=== PATIENT | male | born 1950 | race Caucasian/White ===

== ENCOUNTER 2019-08-02 06:13 | Inpatient (IN) ==
[2019-07-24 14:33] LABS: Basophils # (auto) 0.05 K/uL (0-0.2); Basophils % (auto) 0.5 %; Eosinophils # (auto) 0.12 K/uL (0-0.5); Eosinophils % (auto) 1.3 %; Hematocrit (blood only) 38.5 % (42-52); Hemoglobin 13.5 g/dL (14.0-18.0); Immature Granulocytes # (auto) 0.02 K/uL (0.00-0.02); Immature Granulocytes % (auto) 0.2 %; Lymphocytes # (auto) 2.25 K/uL (1.2-3.4); Lymphocytes % (auto) 24.5 %; Mean Corpuscular Hemoglobin 29.8 pg (25-34); Mean Corpuscular Hgb Conc 35.1 g/dL (32-36); Mean Platelet Volume 11.7 fL (7.4-10.4); Monocytes # (auto) 0.81 K/uL (0.11-0.59); Monocytes % (auto) 8.8 %; Neutrophils # (auto) 5.94 K/uL (1.4-6.5); Neutrophils % (auto) 64.7 %; Platelet Count 229 K/uL (130-400); RDW Coefficient of Variation 13.5 % (11.5-14.5); RDW Standard Deviation 41.7 fL (36.4-46.3); Red Blood Count 4.53 M/uL (4.7-6.1); White Blood Count 9.19 K/uL (4.8-10.8)
[2019-07-24 14:52] LABS: BUN Creatinine Ratio 18.5 (10-20); Blood Urea Nitrogen 22 mg/dl (7-18); Calcium 8.7 mg/dl (8.5-10.1); Carbon Dioxide 27 mmol/L (21-32); Chloride 106 mmol/L (98-107); Est GFR (African American) 71.5; Est GFR (Non-African American) 61.7; Glucose 94 mg/dl (70-99); Sodium 141 mmol/L (136-145)
--- NOTE | 2019-07-26 13:27 | Anesthesiology Consultation ---
Date of Service July 26, 2019 Assessment & Plan (1) Encounter for pre-operative examination: Chart Review Chart Review: Acceptable Risk for Surgery and Patient NOT seen in Pre Admission Testing Consults Requested none Teaching & Discussion med teaching done via phone by PAT RN History Surgery Operation Date: 08/02/19 10:30 Proposed Procedures p Navigational Bronchoscopy with ICG Markings, - Singh Rich MD, FACS s Left Robotic Video Assisted Thoracoscopy with Left Upper Lobe Wedge Resection, Possible Left Upper Lobectomy with Mediastinal Lymphadenectomy - Singh Rich MD, FACS Height/Weight Height: 6 ft Weight: 93.894 kg Allergies Allergy/AdvReac Type Severity Reaction Status Date / Time No Known Allergies Allergy Verified 07/24/19 11:21 Medications Home Medications Medication Instructions Recorded Confirmed Last Taken ascorbic acid (vitamin C) ER 1,000 2,000 mg PO DAILY tab 07/12/19 07/24/19 Unknown mg tablet,extended release calcium carbonate 500 mg (1,250 1 tab PO DAILY 07/12/19 07/24/19 Unknown mg)-vitamin D3 125 unit tablet cholecalciferol (vitamin D3) 10,000 units PO DAILY 07/12/19 07/24/19 Unknown 10,000 unit capsule turmeric root extract 500 mg 500 mg PO Q2D 07/12/19 07/24/19 Unknown capsule vitamin B complex capsule 1 cap PO Q2D 07/12/19 07/24/19 Unknown Past Medical History Medical History Lung nodule irregular lung lesion Pure hypercholesterolemia Past Family History Family History Father Diabetes Mother Cancer Heart disease Past Surgical History Surgical History H/O arthroscopic knee surgery unsure which side H/O hand surgery at age 1. History of colonoscopy Social History Smoking Status: Never smoker Do You Dip or Chew Tobacco: No Hx Alcohol Use: Yes alcohol intake frequency: holidays/special occasions only Hx Substance Use: No substance use type: does not use Testing Laboratory Results 07/24/19 14:04 07/24/19 14:04 Electrocardiogram Date: 04/12/19 Findings: + NSR @ (63) Other Testing Chest CT 8/26/19: 1. No significant change in the mixed solid and groundglass 3.4 cm spiculated lesion within the left upper lobe. This is highly suspicious for a primary bronchogenic malignancy. 2. Stable 4 mm groundglass indeterminate pulmonary nodule within the superior segment of the right lower lobe. Continued follow-up recommended to exclude an a dditional low-grade neoplasm.
[~2019-08-02 06:13] MED LIST: LR 15ML/HR IV SCH
[2019-08-02] MEDS ORDERED: SODIUM CHLORIDE 0.9% PF 50 ML VIAL ONE (06:58)
[2019-08-02] MEDS ORDERED: BUPIVACAINE LIPOSOME 1.3% 266 MG/20 ML VIAL ONE (06:58)
[2019-08-02] MEDS ORDERED: BUPIVACAINE 0.5 % 5 MG/1 ML MPF 30ML VIAL ONE (06:58)
--- NOTE | 2019-08-02 07:26 | History & Physical Bridge Note ---
Date of Service August 02, 2019 History & Physical Bridge Note I have examined the patient, reviewed the History & Physical and in the interval since the performance of the History & Physical I have noted the following changes of clinical significance: no changes noted
[2019-08-02] MEDS ORDERED: PROPOFOL IV EMULSION 10 MG/ML 20 ML VIAL IV ONE (07:29)
[2019-08-02] MEDS ORDERED: ONDANSETRON INJ 2 MG/ML 2 ML VIAL ONE (07:29)
[2019-08-02] MEDS ORDERED: NEOSTIGMINE METHYLSULFATE 5 MG/5 ML SYR ONE (07:29)
[2019-08-02] MEDS ORDERED: LIDOCAINE HCL 2% 2 ML VIAL/AMP(20MG/ML) INFIL ONE (07:29)
[2019-08-02] MEDS ORDERED: GLYCOPYRROLATE 0.2 MG/ML VIAL ONE (07:29)
[2019-08-02] MEDS ORDERED: DEXAMETHASONE SOD INJ 4 MG/ML VIAL ONE (07:29)
[2019-08-02] MEDS ORDERED: MIDAZOLAM HCL 1 MG/ML 2ML VIAL ONE (07:30)
[2019-08-02] MEDS ORDERED: fentaNYL citrate 100 MCG/2 ML VIAL ONE ×4 (07:30→12:39)
[2019-08-02] MEDS ORDERED: HYDROmorphone INJ 2 MG/ML SYR/VIAL IV PRN (08:02)
[2019-08-02] MEDS ORDERED: ATROPINE SULFATE 0.1 MG/ML 10ML SYR IV PRN ×2 (08:02→14:55)
[2019-08-02] MEDS ORDERED: ePHEDrine sulfate 50 MG/ML AMP IV PRN ×2 (08:02→14:55)
[2019-08-02] MEDS: CEFAZOLIN 2000MG 2,000 MG/15 ML SYR IV ONE ×2 (08:13→08:27)
[2019-08-02] MEDS ORDERED: INDOCYANINE GREEN 25 MG/10 ML INJ ONE (08:39)
--- NOTE | 2019-08-02 09:13 | Fluoroscopy Report ---
FL chest 1V frontal CLINICAL HISTORY: JUSTIN BRONCH WITH ICG MARKINGS COMPARISON STUDY: CT scan dated 07/24/2019 FLUOROSCOPY TIME: 28 seconds. NUMBER OF FLUOROSCOPIC IMAGES: 2 FINDINGS: 2 fluoroscopic spot images demonstrate a bronchoscope and bronchoscopy catheter within the left upper lobe. IMPRESSION: Intraprocedural fluoroscopic spot images demonstrating a bronchoscope and catheter withi n the left upper lobe Electronically signed by: Wai Lemons M.D. 08/02/2019 9:12 AM
[2019-08-02] MEDS ORDERED: ePHEDrine sulfate 50 MG/ML SYR ONE (10:05)
[2019-08-02] MEDS ORDERED: PHENYLEPHRINE 100MCG/ML 5ML SYR ONE (10:05)
[2019-08-02] MEDS ORDERED: SURGICEL ABSORB HEMOSTAT 2IN X 14IN TOP ONE (10:34)
[2019-08-02] MEDS ORDERED: PROGEL PLEURAL AIR LEAK SEALAN 4ML TOP ONE (12:25)
[2019-08-02] MEDS ORDERED: ROCURONIUM BROMIDE 10 MG/ML 5 ML VIAL ONE (12:29)
[2019-08-02] MEDS ORDERED: METOCLOPRAMIDE HCL INJ 5 MG/ML 2 ML VIAL IV ONE (12:55)
--- NOTE | 2019-08-02 13:08 | Post Operative Brief Note ---
PG Immediate Post Op with CF Date of Surgery August 02, 2019 Pre & Post Diagnosis Operation Date: 08/02/19 08:15 Pre-Op Diagnosis: Left Lung Mass Post-Op Diagnosis: Adenocarcinoma JOHANNA Procedure Operation Date: 08/02/19 08:15 Actual Procedures p Navigational Bronchoscopy with ICG Markings; - Singh Rich MD, FACS s Left Robotic Video-Assisted Thoracoscopy with Left Upper Lobe Wedge Resection,Left Upper Lobectomy, with Mediastinal Lymphadenectomy(Left) - Singh Rich MD, FACS Surgeon Singh Rich MD, FACS Babbitter Krysten MCDANIELS Estimated Blood Loss 75 Findings Consistent with Post-Op Diagnosis Specimens Specimen Description: A. L10 lymph node x4 multiple nodes B. Level 7 lymph node C. L9 lymph node D. L8 lymph node E. L11 lymph node x6 multiple nodes F. Level 5 lymph node x2 multiple nodes G. Level 6 lymph node H. L12 lymph node x4 multiple nodes I. left upper lobe Frozen section#1 left upper lobe wedge for diagnosis Drains Chest Tube (24fr) and Hammond Catheter
--- NOTE | 2019-08-02 13:43 | XRay Report ---
XR chest 1V portable HISTORY: Postop. Left upper lobectomy. COMPARISON: Chest CT 07/24/2019. FINDINGS: There is a small left apical pneumothorax with a maximal pleural gap of 2.5 cm. Left-sided chest tube terminates in the left medial upper lung zone. Small left pleural effusion and left basila r densities. The heart is normal in size. The right lung is essentially clear. IMPRESSION: Small left apical pneumothorax. The left-sided chest tube terminates within the medial upper lung zon e. Electronically signed by: He Salomon M.D. 08/02/2019 1:42 PM
--- NOTE | 2019-08-02 15:00 | Anesthesiology Progress Note ---
Date of Service August 02, 2019 Anesthesia Post Procedure Vital Signs Vital Signs: Temp Pulse Pulse Resp BP Pulse Ox 08/02/19 14:51 35.9 C L 78 15 155/87 H 96 08/02/19 14:40 79 15 144/85 H 97 08/02/19 14:30 85 15 128/85 94 08/02/19 14:15 85 15 142/81 H 94 08/02/19 14:05 83 18 133/76 100 08/02/19 13:55 88 14 133/76 96 08/02/19 13:45 92 H 18 113/67 98 08/02/19 13:35 75 18 113/67 98 08/02/19 13:26 35.8 C L 74 18 104/62 98 08/02/19 07:03 36.6 C 65 18 147/94 H 99 Transfer of Care Handoff Completed per policy Notes Mental Status: alert / awake / arousable Patient Amnestic to Procedure: Yes Nausea / Vomiting: adequately controlled Pain: adequately controlled Airway Patency, RR, SpO2: stable & adequate BP & HR: stable & adequate Hydration State: stable & adequate Anesthetic Complications: no major complications apparent and Pt Satisfied with anesthetic care
[2019-08-02] MEDS ORDERED: ONDANSETRON INJ 2 MG/ML 2 ML VIAL IV PRN (15:54)
[2019-08-02] MEDS: ACETAMINOPHEN 1,000 MG/100 ML VIAL IV SCH (16:19)
[2019-08-02] MEDS: METOCLOPRAMIDE HCL INJ 5 MG/ML 2 ML VIAL IV SCH (16:19)
[2019-08-02] MEDS: D5W AND 1/2NSS 1,000 ML IV SCH (19:01)
[2019-08-02] MEDS: DOCUSATE SODIUM 100 MG CAP PO SCH (21:47)
--- NOTE | 2019-08-02 23:49 | Operative Report ---
DATE OF OPERATION: 08/02/2019 PREOPERATIVE DIAGNOSIS: Hypermetabolic mass, left upper lobe. 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 PROCEDURES: 1. Electromagnetic navigational bronchoscopy with marking of left upper lobe lesion using indocyanine green dye. 2. Robot-assisted left thoracoscopic wedge resection of left upper lobe mass marked by ICG dye. 3. Robot-assisted thoracoscopic left upper lobectomy. 4. Robot-assisted thoracoscopic left mediastinal lymphadenectomy. SURGEON: Singh Rich MD. AIRFIELD MANAGER: ENEDELIA Escalona (Mr. Madrid was present for the entire case and was at the patient's bedside while I was at the console). ANESTHESIA: General anesthesia with endotracheal intubation using a double lumen tube. SPECIFICS OF PROCEDURE AND FINDINGS: Freddie Huynh is a very nice 69-year-old male, who looks much younger than stated age with excellent lung function, who was found to have a mass in his left upper lobe. This had been debated about the best way to treat this; however, he presented to me for an opinion and quite frankly I was concerned about the appearance. It was hypermetabolic, but I did not like the appearance, even though it was a bit infiltrative. After a long discussion in the office with the patient's , we elected to proceed with a thoracoscopic wedge biopsy and having it marked by ICG dye. INDICATION FOR PROCEDURE AND FINDINGS: On 08/02/2019, the patient underwent an electromagnetic navigational bronchoscopy with marking of the lesion with indocyanine green dye. We could see this and we used the Firefly fluorescence using the da Kaley robot and wedged this out. The patient had no fissure whatsoever and in this case a bit more technically challenging, but he did very well with negligible blood loss, although he did have a small air leak at the conclusion of the case. Frozen section showed this to be an adenocarcinoma, although Dr. Reinaldo Graham from pathology felt that this was possibly carcinoma in situ. This was a large lesion well over 3 cm. I elected to proceed with a lobectomy. DESCRIPTION OF PROCEDURE: The patient was brought to the operating room, laid in supine position. General anesthesia was induced and endotracheal intubation was performed with single lumen tube. After appropriate timeout had been called and prophylactic antibiotics given, a fiberoptic bronchoscope was placed through the adapter and I closely inspected each of the airways down to the tertiary airways and saw no mucus and saw no endobronchial lesions. We then registered the airways in the superDimension system and then went right out to the lesion going to the left upper lobe lesion, which had been mapped. We confirmed this with the radial ultrasound. It was not a solid mass, but it was definitely different than normal lung. We then took 1 mL of indocyanine green dye with 1 mL of air and injected it into this area under fluoroscopic guidance. We then removed the scope. There was no bleeding. The patient was then readied for his robotic wedge resection and possible lobectomy. The patient was switched over to a double lumen tube. An arterial line was placed with a Hammond catheter and he was placed in the right lateral decubitus position. His left chest was prepped and draped in usual sterile fashion. At about the seventh interspace near the midline, an incision was made and a 5-mm scope placed while the patient had been placed in one-lung ventilation. There were no adhesions; however, there was not much of a fissure either. We then switched this port out to a camera port which was about 12 mm. Closer to the costal margin we placed an 8-mm port about 10 cm lateral to our camera port. Patient had an 8-mm port and a 5-mm port closer to the spine an interspace or two below this. Assistance port was placed just above the diaphragm anteriorly. We were then able to go ahead and had to go find the fissure and try to separate it, although we really could not get down to the vessels. I had to separate some of this so that I could have enough of the left upper lobe until I finally fired a stapler across this. It should be noted that with the Firefly technology, we could see where the dye had been located and included this in our wedge. While waiting for this wedge, we went down and took down the inferior pulmonary ligament, biopsied level 9 node, level 8 node, and then took out the entire level 7 packet. I then took out the level 5 node, level 6 node, several level 10 nodes, and several level 11 and even some level 12 nodes as we got further out. I then came around the top superiorly and opened the pleura all the way up and cleaned out the arterial branches. The apical anterior segment was cleaned off quite nicely. We then came around to the front and when frozen section came back as an adenocarcinoma, we elected to proceed with a resection. I was able to retract the lung posteriorly and took the pleura down all the way from the AP window down to the inferior pulmonary vein. We dissected out multiple lymph nodes which really opened up the vessels nicely. I fired an Endo-TRINIDAD stapler across the lingula and the superior pulmonary vein in one shot. This opened up things quite nicely and we were able to take the apical anterior branch by firing an Endo-TRINIDAD stapler. The A3 segment was also identified and we fired a stapler across this. This freed up things nicely and we came down and dissected out the artery until we saw the lingular artery. However, the bronchus had been cleaned off quite nicely and I went ahead and fired a stapler on the proximal left upper lobe bronchus. This opened up things nicely and we were able to see the lingular artery and we divided this with an Endo-TRINIDAD stapler. We just had the fissure left now, but we had dissected it out, so we were able to see and avoided the arteries and came down and completed the fissure posteriorly and then anteriorly. It should be noted this patient really had no fissures. We delivered this off the field in an Endobag. The patient had a small air leak, but it was right along the staple line and was a bit difficult to get to. I sprayed Progel over this. He had a small air leak, but I thought he would tolerate this well. At the beginning of the case, 266 mg of Exparel and 20 mL of solution was mixed with 30 mL of 0.5% bupivacaine and 250 mL of normal saline. After this had been mixed, it was fired into each of the 5 port sites. I also did an intercostal block from the 2nd to the 12th rib by injecting fully into the interspaces. At the conclusion of the case, we could see the air leak was acceptable. We placed a 24-Yoruba chest tube and directed it towards the apex through the anterior port. We sutured it in place with heavy silk suture. We then undocked and removed all the ports and closed the assistance port and the camera port with 0 Vicryl. A 4-0 Monocryl was used in running subcuticular fashion to approximate the wound edges. The patient was extubated in the room and did quite nicely. I attest to the content of the Intraoperative Record and any orders documented therein. Any exception s are noted below.
[2019-08-03] MEDS: METOCLOPRAMIDE HCL INJ 5 MG/ML 2 ML VIAL IV SCH ×2 (00:21→07:43)
[2019-08-03] MEDS: ACETAMINOPHEN 1,000 MG/100 ML VIAL IV SCH ×2 (00:32→07:43)
[2019-08-03] MEDS: D5W AND 1/2NSS 1,000 ML IV SCH (04:27)
[2019-08-03 06:04] LABS: Basophils # (auto) 0.01 K/uL (0-0.2); Basophils % (auto) 0.1 %; Hematocrit (blood only) 33.9 % (42-52); Hemoglobin 11.7 g/dL (14.0-18.0); Immature Granulocytes # (auto) 0.05 K/uL (0.00-0.02); Immature Granulocytes % (auto) 0.3 %; Lymphocytes # (auto) 1.04 K/uL (1.2-3.4); Lymphocytes % (auto) 6.7 %; Mean Corpuscular Hemoglobin 29.7 pg (25-34); Monocytes # (auto) 1.23 K/uL (0.11-0.59); Neutrophils # (auto) 13.09 K/uL (1.4-6.5); Neutrophils % (auto) 84.9 %; Platelet Count 161 K/uL (130-400); RDW Coefficient of Variation 14.2 % (11.5-14.5); RDW Standard Deviation 44.8 fL (36.4-46.3); Red Blood Count 3.94 M/uL (4.7-6.1); White Blood Count 15.42 K/uL (4.8-10.8)
[2019-08-03 06:12] LABS: Mean Corpuscular Hgb Conc 34.5 g/dL (32-36)
[2019-08-03 06:23] LABS: BUN Creatinine Ratio 17.2 (10-20); Calcium 8.4 mg/dl (8.5-10.1); Creatinine Clr Calc Pharmacy 63.4 ml/min; Est GFR (African American) 64.8; Est GFR (Non-African American) 55.9; Potassium 4.6 mmol/L (3.5-5.1)
--- NOTE | 2019-08-03 07:08 | XRay Report ---
XR chest 1V portable HISTORY: 69 years-old Male JOHANNA follow-up study in a patient with postoperative changes of the left l joe and left apical pneumothorax COMPARISON: Chest radiograph 08/02/2019 TECHNIQUE: Portable AP view of the chest FINDINGS: Left-sided chest tube is noted with distal tip terminating adjacent to the lateral left upper lung. S topped changes of the left midlung. Decreased size of the left pneumothorax, now with pleural separat ion of 1.6 cm, previously measuring approximately 2.5 cm. Bibasilar opacities suggest probable atelec tasis. There is improved aeration of the left lung base. No overt pulmonary edema or large pleural ef fusion. Degenerative changes of the shoulders and spine. IMPRESSION: 1. Postoperative changes of the left lung with left-sided chest tube in place. 2. Small left apical pneumothorax has decreased in size from comparison. 3. Improved aeration of the left lung base with persistent bibasilar opacities suggestive of atelecta sis. The above report was generated using voice recognition software. It may contain grammatical, syntax o r spelling errors. Electronically signed by: Shantanu Arguello M.D. 08/03/2019 7:07 AM
[2019-08-03] MEDS: DOCUSATE SODIUM 100 MG CAP PO SCH ×2 (07:43→20:29)
[2019-08-03] MEDS: ENOXAPARIN INJ 40 MG/0.4 ML SYR SQ SCH (07:43)
[2019-08-03] MEDS: OXYCODONE HCL IR 5 MG TAB (IMMEDIATE RELEASE) PO PRN ×3 (07:56→19:54)
[2019-08-03] MEDS: MoRPHine SULFATE 2 MG/ML CARP IV PRN ×2 (09:37→15:30)
--- NOTE | 2019-08-03 10:42 | Anesthesiology Progress Note ---
Date of Service August 03, 2019 Anesthesia Post Procedure Vital Signs Vital Signs: Temp Pulse Pulse Resp BP BP Pulse Ox 08/03/19 07:02 36.6 C 60 16 119/72 96 08/03/19 04:28 96 08/03/19 03:15 36.8 C 72 16 107/61 96 08/03/19 01:17 36.9 C 83 16 114/54 L 95 08/02/19 23:15 36.6 C 83 16 132/69 96 08/02/19 21:53 152/92 H 08/02/19 21:48 36.6 C 91 H 16 166/76 H 96 08/02/19 19:14 36.9 C 95 H 18 157/83 H 93 08/02/19 18:10 89 16 149/96 H 100 08/02/19 17:23 36.3 C L 89 16 146/82 H 100 08/02/19 16:15 82 16 147/84 H 98 08/02/19 15:42 36.3 C L 84 16 145/90 H 98 08/02/19 15:15 36.3 C L 81 18 138/84 92 08/02/19 14:51 35.9 C L 78 15 155/87 H 96 08/02/19 14:40 79 15 144/85 H 97 08/02/19 14:30 85 15 128/85 94 08/02/19 14:15 85 15 142/81 H 94 08/02/19 14:05 83 18 133/76 100 08/02/19 13:55 88 14 133/76 96 08/02/19 13:45 92 H 18 113/67 98 08/02/19 13:35 75 18 113/67 98 08/02/19 13:26 35.8 C L 74 18 104/62 98 Pain Intensity Left Flank: Pain Intensity: 6 Left Chest: Pain Intensity: 0 Notes Mental Status: alert / awake / arousable and participated in evaluation Patient Amnestic to Procedure: Yes Nausea / Vomiting: adequately controlled Pain: adequately controlled Airway Patency, RR, SpO2: stable & adequate BP & HR: stable & adequate Hydration State: stable & adequate Anesthetic Complications: no major complications apparent and Pt Satisfied with anesthetic care
[2019-08-03] MEDS: ACETAMINOPHEN 325 MG TAB PO SCH ×2 (13:24→19:01)
--- NOTE | 2019-08-03 18:38 | Progress Note ---
DATE: 08/03/2019 The patient was seen today 1 day status post a robot-assisted thoracoscopic left upper lobectomy for an adenocarcinoma. He is stable. His white count is 15,420 which is not surprising. Hemoglobin is down to 11.7, which is fairly good. BUN and creatinine are normal. I thought his chest x-ray looked quite good except for some low volumes. I am a bit surprised with the patient. His pain control has been very poor. This is despite the fact that we did a block. I believe some of this may be anxiety and I am going to give him some Ativan. He really needs to move and to walk. Otherwise, I am quite pleased with how well he has done from a surgical standpoint. He still has a small air leak, but it is definitely better than yesterday. ASSESSMENT AND PLAN: Postoperative day #1 status post robot-assisted thoracoscopic left upper lobectomy with mediastinal lymphadenectomy for an adenocarcinoma. Final pathology is still pending. I had a long discussion with the patient and his about how important it is going to be for him to get up and move and walk to prevent a pneumonia or pulmonary emboli and also that we have to give this air leak time to heal.
[2019-08-04] MEDS: MoRPHine SULFATE 2 MG/ML CARP IV PRN ×2 (00:03→18:14)
[2019-08-04] MEDS ORDERED: LORazepam 0.25 MG/0.5 ML VIAL IV STA (02:08)
[2019-08-04] MEDS: ACETAMINOPHEN 325 MG TAB PO SCH ×4 (02:24→20:22)
[2019-08-04] MEDS ORDERED: AMIODARONE / D5W 150 MG/100 ML BAG IV STA (02:24)
[2019-08-04] MEDS ORDERED: AMIODARONE IV BOLUS / DRIP IV STA (02:24)
[2019-08-04] MEDS ORDERED: AMIODARONE / D5W 360 MG/200 ML BAG IV SCH ×2 (02:30→08:24)
[2019-08-04] MEDS ORDERED: NON-FORMULARY MEDICATION (Turmeric Root Extract 500 MG) PO SCH (02:55)
[2019-08-04] MEDS ORDERED: VITAMIN B COMPLEX TAB PO SCH (02:55)
[2019-08-04] MEDS ORDERED: NORMOSOL-R 500 ML IV ONE ×2 (02:57→03:39)
--- NOTE | 2019-08-04 02:59 | Critical Care Consultation ---
Date of Consultation August 04, 2019 Assessment & Plan (1) Admitted to intensive care unit: Reason Critically Ill: 69-year-old male presenting with new onset A. fib with RVR status post VATS procedure with LEFT upper lobectomy. NEURO - * CAM ICU: NEGATIVE * Pain: Morphine, Oxy * Anxiety: Ativan if needed. CARDIAC/VASCULAR - * New onset A-fib w/ RVR: * Most likely associated w/ recent chest surgery and current chest tube. * Will treat w/ IV Amio bolus --> gtt. * Will bolus w/ IVF * Correct Lytes. * Heparin gtt for prophylaxis. * If pressors needed, consider Denny-Synephrine * EKG: A-Fib w/ RVR @178bpm. Strain patter noted laterally. No significant ST/T- wave changes noted. QTc 447ms. * Monitor on telemetry. RESPIRATORY - * POD#2 s/p VATS w/ JOHANNA wedge resection: * Concerns for neoplastic process. * Ches tube remains in place - continue w/ Thoracic team. * Supplemental O2 PRN. GI/NUTRITION - * Continue diet as tolerated. RENAL/LYTES - * No significant electrolyte derangements. * IVF: Normosol@100mL/hr - * No concerns at this time. * Strict I&Os. ENDO - * No h/o DM or Thyroid Dz * BSGs per unit protocol. ISS --> gtt per unit policy. HEME - * Stable H&H * Will monitor closely for any bleeding concerns w/ need for initiation of Heparin gtt. * Will not bolus w/ Heparin as patient had been receiving prophylactic Lovenox daily and is s/p major chest surgery. ID - * No concerns for infectious contribution at this time. * Trend fever curve. LINES/IV ACCESS - * PIVs x2 * LEFT sided chest tube. DVT PROPHYLAXIS - * Heparin gtt. * SCDs I have personally spent 65 minutes of critical care time in the direct management of this patient. This is a life/limb threatening event. This includes time spent evaluating patient, direct bedside care, chart review, placing orders, interpretation of diagnostic studies, discussion with consultants, patient, and family members, as well as other required patient management activities. This time is exclusive of all separately billable procedures, and teaching time and separate from and in addition to any other critical care service time. Thank you for allowing us to participate in the care of this patient. Please refer to my attending physician's documentation for any further recommendations. (2) Atrial fibrillation with rapid ventricular response: (3) S/P lobectomy of lung: (4) JESSICA (generalized anxiety disorder): (5) Hypercholesterolemia: Supervising Physician Co-Signing Physician Notes Patient seen and examined discussed extensively with MORAIMA's. EMR and imaging studies reviewed. Discussed with thoracic surgery. Patient is a 69-year-old male status post lobectomy for lung cancer. He developed atrial fibrillation with rapid ventricular response on the floor and was admitted to the ICU overnight. He received magnesium, and amiodarone. Initially was anticoagulated but this was stopped by surgery. He did receive magnesium his heart rate is slowed significantly although he remains in atrial fibrillation. This is a new problem for him. He has been hemodynamically stable. Impression: 69-year-old male with postoperative atrial fibrillation with rapid ventricular response. Recommendations: 1. A. fib with RVR: Would recommend beta-blockers at this point in time. Will load on oral metoprolol and use IV as needed amiodarone. No indication for long-term anticoagulation given low chads score. 2. Lung cancer status post resection: Await pathology. 3. Chest pain: Postsurgical. Management per thoracic surgery. 4. Leukocytosis: Suspect reactive due to surgery. We will continue to trend for now. No indication for antimicrobial agents. 5. Constipation: Add MiraLAX to his regiment. If fails to improve, addition of lactulose may be appropriate. 6. Small apical pneumothorax postsurgical: Chest tube in place: Management per thoracic surgery. If the patient's heart rate remains under good control, he can likely transfer to the telemetry floor later today. History of Present Illness Attending Physician: Singh Rich MD, FACS History of Present Illness Patient is a 69-year-old male who is without significant past medical history who has recently been worked up for LEFT upper lobe mass. He is postop day 2 status post VATS with LEFT upper lobe resection. Patient had been doing very well postoperatively up until few hours ago. He reports that after a coughing spell, had repeat vital signs obtained which demonstrated increased heart rate. I was contacted by the patient's primary surgical team as the patient was noted to be in A. fib and required further intervention. Upon arrival in the ICU, the patient is awake, alert, and oriented. He complains of persistent postoperative LEFT-sided chest pain which is not new or changing. He denies any palpitations. He reports no dizziness or lightheadedness. He rates his current discomfort as a 6/10. Patient denies any fevers, chills, nausea, vomiting, abdominal pain, numbness/weakness into the extremities. Patient reports no past medical history of tobacco abuse or heavy alcohol use. Allergies Allergy/AdvReac Type Severity Reaction Status Date / Time No Known Allergies Allergy Verified 08/02/19 07:00 Home Medications Home Medications Medication Instructions Recorded Confirmed Type ascorbic acid (vitamin C) ER 1,000 2,000 mg PO DAILY tab 07/12/19 08/02/19 History mg tablet,extended release calcium carbonate 500 mg (1,250 1 tab PO DAILY 07/12/19 08/02/19 History mg)-vitamin D3 125 unit tablet cholecalciferol (vitamin D3) 10,000 units PO DAILY 07/12/19 08/02/19 History 10,000 unit capsule turmeric root extract 500 mg 500 mg PO Q2D 07/12/19 08/02/19 History capsule vitamin B complex capsule 1 cap PO Q2D 07/12/19 08/02/19 History Patient History Medical History Lung nodule irregular lung lesion Pure hypercholesterolemia Surgical History H/O arthroscopic knee surgery unsure which side H/O hand surgery at age 1. History of colonoscopy History of lobectomy of lung (08/02/19) Navigational Bronchoscopy with ICG Markings; - Singh Rich MD, FACS s Left Robotic Video-Assisted Thoracoscopy with Left Upper Lobe Wedge Resection,Left Upper Lobectomy, with Mediastinal Lymphadenectomy Dr. Rich 08-02-19 Family History Father Diabetes Mother Cancer Heart disease Social History Preferred Language: Yoruba Communication Ability: Effective Pan Dumper Required: No Beliefs That Will Affect Care: None marital status: Current Living Situation: Spouse current occupational status: retired Feels Safe at Home: Yes Smoking Status: Never smoker Second Hand Exposure: Yes (CHILDHOOD) ; Hx Alcohol Use: Yes Hx Substance Use: No Review of Systems Review of Systems: A complete 10 point review of systems was reviewed with the patient with pertinent positives and negatives as per history of present illness. All else were negative. Physical Exam Physical Exam: VITAL SIGNS - Vital signs and nursing notes were reviewed. GENERAL - 69-year-old male appearing his stated age who is in no acute distress. Communicates well with provider and answers questions appropriately. HEAD - NC/AT. EYES - PERRL with EOMI bilaterally. Sclera anicteric. Palpebral conjunctiva pink and moist with no injection noted. EARS - No deformities of external structures noted on gross examination bilaterally. NOSE - Midline and without cyanosis. No epistaxis or purulent drainage noted. MOUTH/OROPHARYNX - Without perioral cyanosis. Buccal mucosa pink and moist and without leukoplakia. Tongue midline with equal elevation of palate bilaterally. NECK - Neck with FROM. Supple to palpation. LUNGS - Chest tube in place to the LEFT sided chest wall. No JOHANNA breath sounds appreciated. Minimal LLL breath sounds noted. RIGHT sided lung field CTA without adventitious sounds noted. CARDIAC - Regularly irregular tachycardic rhythm noted. No murmur, rubs, or gallops appreciated. No reproducible tenderness to palpation appreciated over the anterior chest wall. ABDOMEN - Abdominal contour flat without pulsations or visible masses. BS normoactive all four quadrants. No tenderness, palpable masses, hepatosplenomegaly, or ascites noted. EXTREMITIES - No clubbing or peripheral cyanosis. No pretibial edema present. +3/5 radial and dorsalis pedis pulses palpated throughout. +5/5 strength noted in UE/LE bilaterally. NEUROLOGIC - Cranial nerves II through XII grossly intact. Sensory intact to light touch throughout. PSYCH - A&Ox3 and cooperates fully with examiner. Pt is very pleasant and interacts well with examiner. Results & Data Vital Signs (Past 12 Hours) Vital Signs Temp Pulse Pulse Resp BP Pulse Ox 08/04/19 01:49 36.8 C 08/04/19 01:44 123/77 08/04/19 01:40 143 H 94 08/03/19 23:15 36.3 C L 82 18 166/83 H 91 08/03/19 19:30 36.7 C 72 22 146/78 H 91 08/03/19 15:03 37.0 C 64 17 134/72 95 PG Care Time/CCT Total # of Minutes Spent Total Time Spent with Patient: Total time spent is greater than 50% in coordination of care (as documented) at patient's floor/unit and/or counseling patient: Critical Care Time: Yes Total Critical Care Time: 65
[2019-08-04] MEDS: MAGNESIUM SULFATE / D5W 1 GM/100 ML BAG IV SCH ×3 (03:18→05:18)
[2019-08-04 03:27] LABS: Basophils # (auto) 0.02 K/uL (0-0.2); Basophils % (auto) 0.1 %; Eosinophils # (auto) 0.02 K/uL (0-0.5); Eosinophils % (auto) 0.1 %; Hematocrit (blood only) 35.7 % (42-52); Hemoglobin 12.4 g/dL (14.0-18.0); Immature Granulocytes # (auto) 0.07 K/uL (0.00-0.02); Immature Granulocytes % (auto) 0.4 %; Lymphocytes # (auto) 1.29 K/uL (1.2-3.4); Lymphocytes % (auto) 7.6 %; Mean Corpuscular Hemoglobin 30.2 pg (25-34); Mean Corpuscular Volume 87.1 fL (80-100); Mean Platelet Volume 11.5 fL (7.4-10.4); Monocytes # (auto) 1.81 K/uL (0.11-0.59); Monocytes % (auto) 10.7 %; Neutrophils # (auto) 13.66 K/uL (1.4-6.5); Neutrophils % (auto) 81.1 %; Platelet Count 201 K/uL (130-400); RDW Coefficient of Variation 14.4 % (11.5-14.5); RDW Standard Deviation 46.6 fL (36.4-46.3); White Blood Count 16.87 K/uL (4.8-10.8)
[2019-08-04 03:37] LABS: Mean Corpuscular Hgb Conc 34.7 g/dL (32-36)
[2019-08-04 03:45] LABS: Albumin Level 3.3 gm/dl (3.4-5.0); BUN Creatinine Ratio 18.8 (10-20); Bilirubin Direct 0.2 mg/dl (0-0.2); Calcium 7.7 mg/dl (8.5-10.1); Creatinine Clr Calc Pharmacy 67.7 ml/min; Est GFR (African American) 70.1; Est GFR (Non-African American) 60.5; Magnesium 1.7 mg/dl (1.8-2.4)
[2019-08-04 03:50] LABS: Bilirubin,Total 1.2 mg/dl (0.2-1); Total Protein 6.7 gm/dl (6.4-8.2); Troponin I 0.026 ng/ml (0-0.045)
[2019-08-04] MEDS ORDERED: CALCIUM GLUCONATE 10% 1,000 MG in SODIUM CHLORIDE 0.9% 50 ML IV STA (03:59)
[2019-08-04] MEDS ORDERED: Heparin IV Standard *NO* Bolus IV SCH (04:11)
[2019-08-04] MEDS ORDERED: ICU PROTOCOL FOR HYPERGLYCEMIA PRN (04:11)
[2019-08-04] MEDS: NORMOSOL-R 1,000 ML IV SCH ×3 (04:12→23:37)
[2019-08-04] MEDS ORDERED: HEPARIN SODIUM/DEXTROSE 25,000 UNITS/500 ML BAG IV SCH (04:15)
[2019-08-04 04:33] LABS: INR 1.1 (0.9-1.1); Partial Thromboplastin Ratio 1.1; Partial Thromboplastin Time 28.8 Seconds (21.0-31.0); Prothrombin Time 11.4 Seconds (9.0-12.0)
[2019-08-04] MEDS ORDERED: METOPROLOL TARTRATE 1 MG/ML VIAL IV STA (06:02)
[2019-08-04] MEDS ORDERED: AMIODARONE 150MG / 100ML D5W IV ONE (06:12)
[2019-08-04] MEDS ORDERED: AMIODARONE / D5W 150 MG/100 ML BAG IV ONE (06:20)
[2019-08-04] MEDS: POT PHOSPHATE MONOBASIC W/ SOD TAB PO SCH ×3 (07:19→20:48)
[2019-08-04] MEDS: VITAMIN B COMPLEX TAB PO SCH (07:20)
[2019-08-04] MEDS: CALCIUM 600MG + VIT D 400 IU TAB PO SCH (07:20)
[2019-08-04] MEDS: ASCORBIC ACID 500 MG TAB PO SCH (07:20)
[2019-08-04] MEDS: DOCUSATE SODIUM 100 MG CAP PO SCH ×2 (07:20→20:22)
--- NOTE | 2019-08-04 07:34 | XRay Report ---
XR chest 1V portable CLINICAL HISTORY: 69 years-old Male presenting with left upper lobectomy, new onset atrial fibrillati on. TECHNIQUE: Portable upright AP view of the chest was obtained. COMPARISON: 08/03/2019. FINDINGS: Cardiac silhouette borderline enlarged. The low lung volumes with hypoventilatory changes. Significan t interval increase in left retrocardiac opacity. Persistent right basilar opacity. Suture margin is projected over the left hilum. The previously demonstrated left pneumothorax may be minimally present though this is poorly demonstrated given portable technique. The large bore left pleural drain remai ns position at the periphery of the left upper lung. No large pleural effusion. Osseous structures no rmal. Upper abdomen normal. IMPRESSION: 1. Possible trace left apical pneumothorax with left pleural drain remaining in place. Evaluation li mited by portable technique. 2. Increased left basilar opacity, likely atelectasis. 3. Persistent right basilar atelectasis. 4. Persistent mildly low lung volumes. 5. Post surgical changes of the left lung. Electronically signed by: Gallito Gaffney M.D. 08/04/2019 7:33 AM
[2019-08-04] MEDS: OXYCODONE HCL IR 5 MG TAB (IMMEDIATE RELEASE) PO PRN ×3 (07:46→22:51)
[2019-08-04] MEDS ORDERED: POLYETHYLENE (MIRALAX) 17 GM PACK PO PRN (08:17)
[2019-08-04] MEDS: METOPROLOL TARTRATE 25 MG TAB PO SCH ×2 (08:32→16:49)
--- NOTE | 2019-08-04 08:39 | Critical Care Progress Note ---
Date of Service August 04, 2019 Assessment & Plan (1) Admitted to intensive care unit: Reason Critically Ill: 69-year-old male presenting with new onset A. fib with RVR status post VATS procedure with LEFT upper lobectomy. NEURO - CAM ICU: NEGATIVE Pain: APAP 650mg Po Q6H LASHANDA, Oxycodone 5mg Q6H PRN, breakthrough morphine 1-2mg Q1H PRN Anxiety: Ativan single dose PRN. Recieved 1x lorazepam .25mg @ 0200 and slept well following CARDIAC/VASCULAR - Post-operative Atrial Fibrillation w/ RVR - EKG: A-Fib w/ RVR @178bpm. V3-V6 ST strain. 1mm ST change in II/III without T wave inversion QTc 447ms. - Trop .026; 6 & 12 hr troponin trended. Repeat ECG this afternoon. - Most likely associated w/ recent chest surgery and current chest tube. - Recieved Amio 150mg bolus x2 and Amio gtt overnight + 1L Normosol bolus - s/p 1x metoprolol 2.5mg IV dose this AM - Started on Metoprolol 12.5mg Q8H LASHANDA - Cardiology consulted on transfer - [id number] = 1. Heparin gtt held, prophylaxis per surgical team - Monitor on telemetry. RESPIRATORY - POD#2 s/p VATS w/ JOHANNA wedge resection 2/2 spiculated mass consistent with adenocarinoma - Chest tube in place. Small grade 1-2 airleak on cough this morning - No home O2 requirement, currently on 2LNC with SpO2 92%. Wean to SpO2>92%. - XR-C: L apical pneumo, L basilar atelectasis, decreased overall volume - Thoracic surgery following GI/NUTRITION - Regular Diet RENAL/LYTES - - No sodium, potassium derangements - Cr 1.2, at baseline - Mg 1.7, received 3g Mag on transfer. Recheck pending follow phos repletion - Phos 2.0. Added Neutraphos 250 PO Q4H x3 doses with Mg and Phos recheck this afternoon - Ca 7.7 with Alb 3.3. Received 3g CaGluc on transfer - BMP daily - IVF: Normosol@100mL/hr - No concerns at this time. Strict I&Os. ENDO - No h/o DM or Thyroid Dz BSG, SSI per ICU protocol HEME - - Hgb 12.4 from 11.7, Stable H&H -Will monitor closely for any bleeding concerns - Heparin held as above ID - No concerns for infection at this time Trend fever curve. LINES/IV ACCESS - PIVs x2 LEFT sided chest tube. DVT PROPHYLAXIS - SCDs. Heparin held as above, anticoagulation per surgical team Code Status: Full Code (2) Atrial fibrillation with rapid ventricular response: (3) S/P lobectomy of lung: (4) JESSICA (generalized anxiety disorder): Supervising Physician Co-Signing Physician Notes Patient seen and examined discussed extensively with MORAIMA's. EMR and imaging studies reviewed. Discussed with thoracic surgery. Patient is a 69-year-old male status post lobectomy for lung cancer. He developed atrial fibrillation with rapid ventricular response on the floor and was admitted to the ICU overnight. He received magnesium, and amiodarone. Initially was anticoagulated but this was stopped by surgery. He did receive magnesium his heart rate is slowed significantly although he remains in atrial fibrillation. This is a new problem for him. He has been hemodynamically stable. Impression: 69-year-old male with postoperative atrial fibrillation with rapid ventricular response. Recommendations: 1. A. fib with RVR: Would recommend beta-blockers at this point in time. Will load on oral metoprolol and use IV as needed amiodarone. No indication for long-term anticoagulation given low chads score. 2. Lung cancer status post resection: Await pathology. 3. Chest pain: Postsurgical. Management per thoracic surgery. 4. Leukocytosis: Suspect reactive due to surgery. We will continue to trend for now. No indication for antimicrobial agents. 5. Constipation: Add MiraLAX to his regiment. If fails to improve, addition of lactulose may be appropriate. 6. Small apical pneumothorax postsurgical: Chest tube in place: Management per thoracic surgery. If the patient's heart rate remains under good control, he can likely transfer to the telemetry floor later today. Subjective Mr. Huynh is seen at bedside today. He reports he continues to have chest pain in his center L chest similar to following surgery which is worsened with movement and raising his shoulder. He feels the pain is an 8-10/10 with tearing, pressure like quality. Denies jaw pain and shoulder pain at rest. Endorses mild shortness of breath not acutely worsened overnight. Denies dyspnea, although notes his 'ribs feel tight with deep breaths' since surgery. Denies fever, chills, sweats. Had a cough last night prior to transfer, no cough this morning and denies sputum production. Feels 'serene' and less anxious this morning. Endorses palpitations last night, none this morning. Denies nausea, vomiting, diarrhea, contsipation, abdominal pain. Last bowel movement 2-3 days ago. No other questions or concerns at time of visit. Review of Systems Review of Systems: 10 point review of systems negative except as noted in HPI Physical Exam Physical Exam: General: A&Ox3. NAD. Cooperative. HEENT: Atraumatic, normocephalic. PERLAA. EoM intact without nystagmus. No facial asymmetry. Pulm: Coarse breath sounds in JOHANNA, bibasilar crackles present. Moderate air movement. Symmetrical chest rise. No increase work of breathing. No respiratory distress. On 2L NC O2. Cardiac: irregularly irregular. Rate 80s-130s this morning, ~90 at time of visit. -mrg. Radial pulses intact and symmetrical. No JVD. Abdominal: Nontender, nondistended, soft. BS present. Extremities: Warm, dry. Moving all extremities equally, 5/5 strength to general pediatrician, elbow flexion, ankle plantarflexion/dorsiflexion. No sensory deficits in distal extremities. Results & Data Vital Signs (Past 12 Hours) Vital Signs Temp Pulse Pulse Resp BP BP Pulse Ox 08/04/19 07:12 124 H 137/89 08/04/19 06:31 116 H 13 119/91 92 08/04/19 06:10 103 H 25 H 93 08/04/19 06:01 137 H 17 132/69 93 08/04/19 05:46 128 H 19 116/76 91 08/04/19 05:31 131 H 23 136/90 90 08/04/19 05:16 121 H 31 H 108/81 91 08/04/19 05:01 109 H 20 124/78 92 08/04/19 04:46 121 H 15 108/84 94 08/04/19 04:31 147 H 19 110/69 87 L 08/04/19 04:16 144 H 18 142/69 H 90 08/04/19 04:01 131 H 35 H 114/81 88 L 08/04/19 04:00 150 H 19 88 L 08/04/19 03:46 126 H 25 H 121/83 94 08/04/19 03:31 141 H 18 89/67 L 95 08/04/19 03:21 141 H 25 H 102/81 96 08/04/19 03:11 140 H 29 H 105/80 94 08/04/19 03:01 155 H 27 H 113/78 92 08/04/19 03:00 36.7 C 08/04/19 02:55 148 H 39 H 115/73 89 L 08/04/19 02:54 173 H 36 H 108/73 86 L 08/04/19 01:49 36.8 C 08/04/19 01:44 123/77 08/04/19 01:40 143 H 94 08/03/19 23:15 36.3 C L 82 18 166/83 H 91 PG Care Time/CCT Total # of Minutes Spent Total Time Spent with Patient: Total time spent is greater than 50% in coordination of care (as documented) at patient's floor/unit and/or counseling patient: Resident Activity Tracking Resident Involvement: Resident Care Provided Care Provided: Adult Hospital Medicine
--- NOTE | 2019-08-04 09:19 | Cardiology Consultation ---
Date of Consultation August 04, 2019 Assessment & Plan (1) Atrial fibrillation with rapid ventricular response: Afib in the post op setting Replace electrolytes and monitor Agree with IV amiodarone load and metoprolol tartrate. Use IV metoprolol PRN for rates > 140 CHADSVASC score of 1 (age). No heparin for now given chest tube and post op bleeding risks. Echo not ordered due to significant post op discomfort and current chest tube Case discussed with Dr. Brooks. Will follow. (2) S/P lobectomy of lung: Supervising Physician Co-Signing Physician Notes Patient seen and examined with Joie Lindsay PA-C. Agree with findings and assessment as above. Asymptomatic from cardiac standpoint. Given clinical context, atrial arrhythmia is not unexpected. Luckily, spontaneously converted to sinus after less than 24 hrs in fib, no role for anticoagulation. Will change amio to po after receiving IV for 24 hrs. Will plan to d/c home on po amio and f/u as outpatient in 1 month and likely d/c at that time. General: Awake, alert and oriented x 3. No acute distress. HEENT: Normocephalic, atraumatic. Pupils equal, round and reactive to light and accommodation. Extraocular muscles are intact. Anicteric sclera. Moist mucous membranes. Neck: No JVD. No bruit. Cardiovascular: Regular. Positive S-4. Normal S-1 and S-2. No S-3. No murmurs or rubs. Pulmonary: Clear to auscultation B/L. No rales, rhonchi or wheezing Abdomen: Bowel sounds x 4, soft. No rebound, guarding or tenderness. No organomegaly. Extremities: No clubbing, cyanosis or edema. +2 pedal pulses bilaterally. Skin: Warm and dry. History of Present Illness Reason for Consultation: Atrial fibrillation with RVR; Post op VATS/left upper lobe resection Requesting Physician: KORINA Cortez Attending Physician: Dr. Matteo rBooks History of Present Illness Patient is a 69 year old male with no significant past medical history, admitted for further evaluation of left upper lobe lung mass. He underwent VATS with LEFT upper lobe resection 2 days ago. Last night upon vitals, he was found to be tachycardic and EKG revealed afib RVR. He was transferred to ICU for further treatment and evaluation. Persistent post op left sided chest pain noted. He has a left chest tube in place. He was started on IV amiodarone and received a dose of IV metoprolol which aided his ventricular rates. He was started on IV heparin but stopped due to potential bleeding risks. He denies history of cardiovascular issues. He wore a outpatient director market intelligence earlier this year for palpitations which demonstrated paroxysmal SVT. Symptoms correlated with NSR. No atrial fibrillation noted. He denies a history of atrial fibrillation, coronary artery disease, valvular heart disease. Patient reports he he was symptomatic last night with palpitations. symptoms of proved as heart rate trended down. He is currently sitting up in the chair resting. he reports significant left-sided discomfort with minimal movement. The has been for at since surgery. He denies symptoms of palpitations or shortness of breath currently. No anginal like symptoms. No fevers or chills. Allergies Allergy/AdvReac Type Severity Reaction Status Date / Time No Known Allergies Allergy Verified 08/02/19 07:00 Home Medications Home Medications Medication Instructions Recorded Confirmed Type ascorbic acid (vitamin C) ER 1,000 2,000 mg PO DAILY tab 07/12/19 08/02/19 History mg tablet,extended release calcium carbonate 500 mg (1,250 1 tab PO DAILY 07/12/19 08/02/19 History mg)-vitamin D3 125 unit tablet cholecalciferol (vitamin D3) 10,000 units PO DAILY 07/12/19 08/02/19 History 10,000 unit capsule turmeric root extract 500 mg 500 mg PO Q2D 07/12/19 08/02/19 History capsule vitamin B complex capsule 1 cap PO Q2D 07/12/19 08/02/19 History Patient History Medical History Lung nodule irregular lung lesion Pure hypercholesterolemia Surgical History H/O arthroscopic knee surgery unsure which side H/O hand surgery at age 1. History of colonoscopy History of lobectomy of lung (08/02/19) Navigational Bronchoscopy with ICG Markings; - Singh Rich MD, FACS s Left Robotic Video-Assisted Thoracoscopy with Left Upper Lobe Wedge R esection,Left Upper Lobectomy, with Mediastinal Lymphadenectomy Dr. 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 Required: No Beliefs That Will Affect Care: None marital status: Current Living Situation: Spouse current occupational status: retired Feels Safe at Home: Yes Smoking Status: Never smoker Second Hand Exposure: Yes (CHILDHOOD) ; Hx Alcohol Use: Yes Hx Substance Use: No Review of Systems Review of Systems: All systems reviewed & are unremarkable except as noted in HPI & below Physical Exam Constitutional: WD/WN, vitals as above + acute distress (mild discomfort with minimal movement) and + ill appearing Respiratory: Auscultation: + diminished lung sounds (minimal effort due to discomfort with deep inspiration) Cardiovascular: Rate/Rhythm: + tachycardic and + irregularly irregular Heart Sounds: no murmur Vessels: no JVD Extremities: no edema Gastrointestinal (Abdomen): normal bowel sounds, soft, nontender, no hepatosplenomegaly Psychiatric: A+Ox3, euthymic affect Results & Data Vital Signs (Past 12 Hours) Vital Signs Temp Pulse Pulse Resp BP BP Pulse Ox 08/04/19 07:12 124 H 137/89 08/04/19 06:31 116 H 13 119/91 92 08/04/19 06:10 103 H 25 H 93 08/04/19 06:01 137 H 17 132/69 93 08/04/19 05:46 128 H 19 116/76 91 08/04/19 05:31 131 H 23 136/90 90 08/04/19 05:16 121 H 31 H 108/81 91 08/04/19 05:01 109 H 20 124/78 92 08/04/19 04:46 121 H 15 108/84 94 08/04/19 04:31 147 H 19 110/69 87 L 08/04/19 04:16 144 H 18 142/69 H 90 08/04/19 04:01 131 H 35 H 114/81 88 L 08/04/19 04:00 150 H 19 88 L 08/04/19 03:46 126 H 25 H 121/83 94 08/04/19 03:31 141 H 18 89/67 L 95 08/04/19 03:21 141 H 25 H 102/81 96 08/04/19 03:11 140 H 29 H 105/80 94 08/04/19 03:01 155 H 27 H 113/78 92 08/04/19 03:00 36.7 C 08/04/19 02:55 148 H 39 H 115/73 89 L 08/04/19 02:54 173 H 36 H 108/73 86 L 08/04/19 01:49 36.8 C 08/04/19 01:44 123/77 08/04/19 01:40 143 H 94 08/03/19 23:15 36.3 C L 82 18 166/83 H 91 Laboratory Results 08/04/19 08/04/19 08/04/19 Range/Units 07:50 06:28 03:15 WBC (4.8-10.8) K/uL RBC (4.7-6.1) M/uL Hgb (14.0-18.0) g/dL Hct (42-52) % MCV (80-100) fL MCH (25-34) pg MCHC (32-36) g/dL RDW Std Deviation (36.4-46.3) fL RDW Coeff of Trixie (11.5-14.5) % Plt Count (130-400) K/uL MPV (7.4-10.4) fL Immature Gran % (Auto) % Neut % (Auto) % Lymph % (Auto) % Walker % (Auto) % Eos % (Auto) % Baso % (Auto) % Immature Gran # (Auto) (0.00-0.02) K/uL Neut # (Auto) (1.4-6.5) K/uL Lymph # (Auto) (1.2-3.4) K/uL Walker # (Auto) (0.11-0.59) K/uL Eos # (Auto) (0-0.5) K/uL Baso # (Auto) (0-0.2) K/uL PT 11.4 (9.0-12.0) Seconds INR 1.1 (0.9-1.1) APTT 28.8 (21.0-31.0) Seconds PTT Ratio 1.1 Sodium (136-145) mmol/L Potassium (3.5-5.1) mmol/L Chloride (98-107) mmol/L Carbon Dioxide (21-32) mmol/L Anion Gap (3-11) BUN (7-18) mg/dl Creatinine (0.6-1.4) mg/dl Est Cr Clr Drug Dosing ml/min Est GFR ( Amer) Est GFR (Non-Af Amer) BUN/Creatinine Ratio (10-20) Glucose (70-99) mg/dl POC Glucose 128 H 187 H (70-99) Calcium (8.5-10.1) mg/dl Phosphorus (2.5-4.9) mg/dl Magnesium (1.8-2.4) mg/dl Total Bilirubin (0.2-1) mg/dl Direct Bilirubin (0-0.2) mg/dl AST (15-37) U/L ALT (12-78) U/L Alkaline Phosphatase (45-117) U/L Troponin I (0-0.045) ng/ml Total Protein (6.4-8.2) gm/dl Albumin (3.4-5.0) gm/dl Random Cortisol mcg/dl Nasal Screen MRSA (PCR) (Negative) Hepatitis C Ab Screen (Neg) 08/04/19 08/04/19 08/04/19 Range/Units 03:09 03:09 03:09 WBC 16.87 H (4.8-10.8) K/uL RBC 4.10 L (4.7-6.1) M/uL Hgb 12.4 L (14.0-18.0) g/dL Hct 35.7 L (42-52) % MCV 87.1 (80-100) fL MCH 30.2 (25-34) pg MCHC 34.7 (32-36) g/dL RDW Std Deviation 46.6 H (36.4-46.3) fL RDW Coeff of Trixie 14.4 (11.5-14.5) % Plt Count 201 (130-400) K/uL MPV 11.5 H (7.4-10.4) fL Immature Gran % (Auto) 0.4 % Neut % (Auto) 81.1 % Lymph % (Auto) 7.6 % Walker % (Auto) 10.7 % Eos % (Auto) 0.1 % Baso % (Auto) 0.1 % Immature Gran # (Auto) 0.07 H (0.00-0.02) K/uL Neut # (Auto) 13.66 H (1.4-6.5) K/uL Lymph # (Auto) 1.29 (1.2-3.4) K/uL Walker # (Auto) 1.81 H (0.11-0.59) K/uL Eos # (Auto) 0.02 (0-0.5) K/uL Baso # (Auto) 0.02 (0-0.2) K/uL PT (9.0-12.0) Seconds INR (0.9-1.1) APTT (21.0-31.0) Seconds PTT Ratio Sodium 136 (136-145) mmol/L Potassium 4.0 (3.5-5.1) mmol/L Chloride 104 (98-107) mmol/L Carbon Dioxide 24 (21-32) mmol/L Anion Gap 8.0 (3-11) BUN 23 H (7-18) mg/dl Creatinine 1.20 (0.6-1.4) mg/dl Est Cr Clr Drug Dosing 67.7 ml/min Est GFR ( Amer) 70.1 Est GFR (Non-Af Amer) 60.5 BUN/Creatinine Ratio 18.8 (10-20) Glucose 147 H (70-99) mg/dl POC Glucose (70-99) Calcium 7.7 L (8.5-10.1) mg/dl Phosphorus 2.0 L (2.5-4.9) mg/dl Magnesium 1.7 L (1.8-2.4) mg/dl Total Bilirubin 1.2 H (0.2-1) mg/dl Direct Bilirubin 0.2 (0-0.2) mg/dl AST 24 (15-37) U/L ALT 25 (12-78) U/L Alkaline Phosphatase 48 (45-117) U/L Troponin I 0.026 (0-0.045) ng/ml Total Protein 6.7 (6.4-8.2) gm/dl Albumin 3.3 L (3.4-5.0) gm/dl Random Cortisol 25.05 mcg/dl Nasal Screen MRSA (PCR) (Negative) Hepatitis C Ab Screen (Neg) 08/04/19 08/03/19 Range/Units 02:50 05:56 WBC (4.8-10.8) K/uL RBC (4.7-6.1) M/uL Hgb (14.0-18.0) g/dL Hct (42-52) % MCV (80-100) fL MCH (25-34) pg MCHC (32-36) g/dL RDW Std Deviation (36.4-46.3) fL RDW Coeff of Trixie (11.5-14.5) % Plt Count (130-400) K/uL MPV (7.4-10.4) fL Immature Gran % (Auto) % Neut % (Auto) % Lymph % (Auto) % Walker % (Auto) % Eos % (Auto) % Baso % (Auto) % Immature Gran # (Auto) (0.00-0.02) K/uL Neut # (Auto) (1.4-6.5) K/uL Lymph # (Auto) (1.2-3.4) K/uL Walker # (Auto) (0.11-0.59) K/uL Eos # (Auto) (0-0.5) K/uL Baso # (Auto) (0-0.2) K/uL PT (9.0-12.0) Seconds INR (0.9-1.1) APTT (21.0-31.0) Seconds PTT Ratio Sodium (136-145) mmol/L Potassium (3.5-5.1) mmol/L Chloride (98-107) mmol/L Carbon Dioxide (21-32) mmol/L Anion Gap (3-11) BUN (7-18) mg/dl Creatinine (0.6-1.4) mg/dl Est Cr Clr Drug Dosing ml/min Est GFR ( Amer) Est GFR (Non-Af Amer) BUN/Creatinine Ratio (10-20) Glucose (70-99) mg/dl POC Glucose (70-99) Calcium (8.5-10.1) mg/dl Phosphorus (2.5-4.9) mg/dl Magnesium (1.8-2.4) mg/dl Total Bilirubin (0.2-1) mg/dl Direct Bilirubin (0-0.2) mg/dl AST (15-37) U/L ALT (12-78) U/L Alkaline Phosphatase (45-117) U/L Troponin I (0-0.045) ng/ml Total Protein (6.4-8.2) gm/dl Albumin (3.4-5.0) gm/dl Random Cortisol mcg/dl Nasal Screen MRSA (PCR) Negative (Negative) Hepatitis C Ab Screen Neg (Neg) Diagnostic Findings Telemetry reviewed: Persistent atrial fibrillation with rates ranging 100-130 currently EKG reviewed from early this AM: Atrial fibrillation with rapid ventricular response at [address] depression in inferior and anterolateral leads Chest xray report reviewed from this AM: IMPRESSION: 1. Possible trace left apical pneumothorax with left pleural drain remaining in place. Evaluation limited by portable technique. 2. Increased left basilar opacity, likely atelectasis. 3. Persistent right basilar atelectasis. 4. Persistent mildly low lung volumes. 5. Post surgical changes of the left lung.
[2019-08-04] MEDS ORDERED: METOPROLOL TARTRATE 1 MG/ML VIAL IV PRN (10:24)
--- NOTE | 2019-08-04 13:29 | Progress Note ---
DATE: 08/04/2019 Mr. Huynh was seen today on 08/04/2019. He is now 48 hours out from his lobectomy. The patient developed atrial fibrillation early this morning and I transferred him down to the ICU, so that he could receive parenteral amiodarone. He was in atrial fib for quite a while actually, but then finally converted today. He is in a sinus rhythm in the 60s. He responded nicely to Lopressor. He is on 2 liters 95% sat. I thought his x-ray looked quite good. He has not drained much fluid, total of 210 mL yesterday. Overall, I am quite pleased with his appearance and his air leak is greatly improved. It is intermittent on suction. I had a long talk with the patient and his . We are going to transfer back to the telemetry. His pathology is still pending. RENZO
[2019-08-04 15:38] LABS: Magnesium 2.5 mg/dl (1.8-2.4); Phosphorus 2.6 mg/dl (2.5-4.9)
[2019-08-05] MEDS: METOPROLOL TARTRATE 25 MG TAB PO SCH ×4 (00:19→23:44)
[2019-08-05] MEDS: ACETAMINOPHEN 325 MG TAB PO SCH ×4 (02:10→20:41)
[2019-08-05] MEDS: MoRPHine SULFATE 2 MG/ML CARP IV PRN (02:11)
--- NOTE | 2019-08-05 07:23 | XRay Report ---
XR chest 1V portable CLINICAL HISTORY: Postop left upper lobectomy COMPARISON STUDY: 08/04/2019 FINDINGS: Postsurgical changes are present on the left. There is left-sided volume loss. No pneumotho rax is visualized. There are progressive basilar airspace opacities, atelectasis versus pneumonia.[Le ft-sided chest tube remains unchanged in position. IMPRESSION: 1. No pneumothorax identified 2. Worsening basilar opacities, atelectasis versus pneumonia Electronically signed by: Wai Lemons M.D. 08/05/2019 7:21 AM
[2019-08-05 09:16] LABS: Partial Thromboplastin Time 26.4 Seconds (21.0-31.0)
[2019-08-05] MEDS: CHOLECALCIFEROL 1,000 UNITS TAB PO SCH (09:41)
[2019-08-05] MEDS: CALCIUM 600MG + VIT D 400 IU TAB PO SCH (09:42)
[2019-08-05] MEDS: DOCUSATE SODIUM 100 MG CAP PO SCH ×2 (09:44→20:41)
[2019-08-05] MEDS: ASCORBIC ACID 500 MG TAB PO SCH (09:45)
[2019-08-05] MEDS ORDERED: BISACODYL 10 MG SUPP PR PRN (09:45)
[2019-08-05] MEDS: ENOXAPARIN INJ 40 MG/0.4 ML SYR SQ SCH (09:50)
[2019-08-05] MEDS: FUROSEMIDE 20 MG TAB PO SCH (10:34)
[2019-08-05] MEDS ORDERED: LORazepam 0.5 MG TAB ONE (10:55)
[2019-08-05 10:56] LABS: BUN Creatinine Ratio 17.6 (10-20); Calcium 8.4 mg/dl (8.5-10.1); Creatinine Clr Calc Pharmacy 82.3 ml/min; Est GFR (African American) 86.3; Est GFR (Non-African American) 74.5; Potassium 4.2 mmol/L (3.5-5.1)
--- NOTE | 2019-08-05 11:15 | Progress Note ---
DATE: 08/05/2019 Mr. Huynh was seen today. He is still complaining of some pain, but he looks much better. His biggest complaint now is he has not moved his bowels. We will give him a suppository today. He has had no real arrhythmias. His air leak is improved even over yesterday. His x-ray looks quite good. I explained to the patient and his how important it is for him to ambulate quite a bit. We will also give him a diuretic as I think he has been getting fluids for the last 2 days. Overall, I am pleased. I am also quite pleased with his pathology. His lymph nodes were all negative. He is a stage I and should not require adjuvant therapy. I am actually very pleased at this point. I am hopeful that his air leak resolves, we can get his chest tube out in the near future. RENZO
[2019-08-05] MEDS: NORMOSOL-R 1,000 ML IV SCH (11:34)
--- NOTE | 2019-08-05 12:04 | Cardiology Progress Note ---
Date of Service August 05, 2019 Assessment & Plan (1) Atrial fibrillation with rapid ventricular response: Afib in the post op setting transient and converted with amio and metoprolol at this point would cont metoprolol and not restart amio no need for anticoagulation at this time given risk of bleed and low chadsvasc score will need f/u as an outpatient with cardiology in approx 1 month (2) S/P lobectomy of lung: Subjective Pt seen and examined, uncomfortable today with muscle spasms and constipation. Denies cardiac complaints of chest pain (other than chest tube site) sob, palpitations, lightheadedness or dizziness. tele reviewed: sinus rhythm with rare PVC's Review of Systems Review of Systems: All systems reviewed & are unremarkable except as noted in HPI & below Physical Exam Physical Exam: General: Awake, alert and oriented x 3. No acute distress. HEENT: Normocephalic, atraumatic. Pupils equal, round and reactive to light and accommodation. Extraocular muscles are intact. Anicteric sclera. Moist mucous membranes. Neck: No JVD. No bruit. Cardiovascular: Regular. Positive S-4. Normal S-1 and S-2. No S-3. No murmurs or rubs. Pulmonary: Clear to auscultation B/L. No rales, rhonchi or wheezing Abdomen: Bowel sounds x 4, soft. No rebound, guarding or tenderness. No organomegaly. Extremities: No clubbing, cyanosis or edema. +2 pedal pulses bilaterally. Skin: Warm and dry. Results & Data Vital Signs (Past 12 Hours) Vital Signs Temp Pulse Pulse Pulse Resp BP BP 08/05/19 07:38 69 08/05/19 07:31 36.9 C 70 18 149/83 H 08/05/19 03:52 37.0 C 60 20 139/85 08/05/19 02:56 60 08/05/19 02:09 62 146/102 H 08/05/19 00:22 66 143/81 H Pulse Ox 08/05/19 07:38 08/05/19 07:31 91 08/05/19 03:52 96 08/05/19 02:56 08/05/19 02:09 08/05/19 00:22
[2019-08-05] MEDS ORDERED: PIPERACILL/TAZOBAC CONSULT ACTIVE PRN (15:28)
[2019-08-05] MEDS ORDERED: PIPERACILLIN/TAZOBACTAM 4.5 GM in DEXTROSE 5% 100 ML IV ONE (16:00)
[2019-08-05] MEDS: PIPERACILLIN/TAZOBACTAM 3.375 GM in DEXTROSE 5% 100 ML IV SCH (20:33)
[2019-08-06] MEDS: ACETAMINOPHEN 325 MG TAB PO SCH ×4 (01:35→20:09)
[2019-08-06] MEDS: PIPERACILLIN/TAZOBACTAM 3.375 GM in DEXTROSE 5% 100 ML IV SCH ×3 (03:38→20:08)
[2019-08-06] MEDS: LORazepam 0.5 MG TAB PO PRN ×2 (04:09→22:27)
[2019-08-06] MEDS: CALCIUM 600MG + VIT D 400 IU TAB PO SCH (09:00)
[2019-08-06] MEDS: ASCORBIC ACID 500 MG TAB PO SCH (09:00)
[2019-08-06] MEDS: FUROSEMIDE 20 MG TAB PO SCH (09:00)
[2019-08-06] MEDS: VITAMIN B COMPLEX TAB PO SCH (09:00)
[2019-08-06] MEDS: METOPROLOL TARTRATE 25 MG TAB PO SCH ×3 (09:01→23:45)
[2019-08-06] MEDS: ENOXAPARIN INJ 40 MG/0.4 ML SYR SQ SCH (09:01)
[2019-08-06] MEDS: DOCUSATE SODIUM 100 MG CAP PO SCH ×2 (09:04→20:09)
[2019-08-06 09:07] LABS: Partial Thromboplastin Time 26.7 Seconds (21.0-31.0)
--- NOTE | 2019-08-06 12:27 | Cardiology Progress Note ---
Date of Service August 06, 2019 Assessment & Plan (1) Atrial fibrillation with rapid ventricular response: Afib in the post op setting transient and converted with amio and metoprolol at this point would cont metoprolol and not restart amio no need for anticoagulation at this time given risk of bleed and low chadsvasc score will need f/u as an outpatient with cardiology in approx 1-2 months both patient and daughter in agreement with plan ok to d/c tele from cardiac standpoint (2) S/P lobectomy of lung: Subjective Pt seen and examined with daughter at bedside, much more comfortable today. Spasm has resolved. Denies cp (other than tube site), sob, palpitations, lightheadedness or dizziness. tele reviewed: sinus rhythm without recurrence of afib Review of Systems Review of Systems: All systems reviewed & are unremarkable except as noted in HPI & below Physical Exam Physical Exam: General: Awake, alert and oriented x 3. No acute distress. HEENT: Normocephalic, atraumatic. Pupils equal, round and reactive to light and accommodation. Extraocular muscles are intact. Anicteric sclera. Moist mucous membranes. Neck: No JVD. No bruit. Cardiovascular: Regular. Positive S-4. Normal S-1 and S-2. No S-3. No murmurs or rubs. Pulmonary: Clear to auscultation B/L. No rales, rhonchi or wheezing Abdomen: Bowel sounds x 4, soft. No rebound, guarding or tenderness. No organomegaly. Extremities: No clubbing, cyanosis or edema. +2 pedal pulses bilaterally. Skin: Warm and dry. Results & Data Vital Signs (Past 12 Hours) Vital Signs Temp Pulse Pulse Pulse Resp BP BP 08/06/19 11:00 36.6 C 72 18 162/88 H 08/06/19 07:25 58 L 08/06/19 07:19 36.6 C 81 20 152/89 H 08/06/19 04:00 37.4 C 69 19 150/84 H 08/06/19 01:55 87 Pulse Ox 08/06/19 11:00 95 08/06/19 07:25 08/06/19 07:19 95 08/06/19 04:00 90 08/06/19 01:55
--- NOTE | 2019-08-06 16:07 | Progress Note ---
DATE: 08/06/2019 Mr. Hyunh was seen today with his daughter. He looks great. His air leak is tiny but still persistent. He has not drained much fluid. He sounds good on exam. His pain is better. He moved his bowels. He looks much better. He is ambulating in the hallway and I feel much better about it. We will get his chest tube out in the next couple of days when the air leak resolves hopefully.
--- NOTE | 2019-08-06 17:16 | XRay Report ---
SINGLE VIEW CHEST CLINICAL HISTORY: Status post lobectomy. FINDINGS: An AP, portable, upright chest radiograph is compared to study dated 08/05/2019 and correlate d with chest CT dated 07/24/2019. The examination is degraded by portable technique and patient rotati on. The heart is mildly enlarged. The pulmonary vasculature is noncongested. There is postoperative c hange and volume loss consistent with left upper lobe resection. A left-sided chest tube is unchanged in position. Airspace opacities and pleural fluid are again seen at the left lung base. Atelectasis is also seen at the right lung base. No pneumothorax is seen. The skeletal structures are osteopenic. The bony thorax is grossly intact. IMPRESSION: 1. There is postoperative change and volume loss consistent with left upper lobe resection. 2. A left-sided chest tube is unchanged in position. No pneumothorax is seen. 3. Airspace opacities at the left lung base persistent there is a trace left pleural effusion. Electronically signed by: Tyshawn Hobson M.D. 08/06/2019 5:15 PM
[2019-08-07] MEDS: ACETAMINOPHEN 325 MG TAB PO SCH ×2 (04:01→10:19)
[2019-08-07] MEDS: PIPERACILLIN/TAZOBACTAM 3.375 GM in DEXTROSE 5% 100 ML IV SCH ×2 (04:01→11:59)
[2019-08-07] MEDS: OXYCODONE HCL IR 5 MG TAB (IMMEDIATE RELEASE) PO PRN (04:52)
[2019-08-07] MEDS: METOPROLOL TARTRATE 25 MG TAB PO SCH (07:49)
[2019-08-07] MEDS: CALCIUM 600MG + VIT D 400 IU TAB PO SCH (07:49)
[2019-08-07] MEDS: CHOLECALCIFEROL 1,000 UNITS TAB PO SCH (07:49)
[2019-08-07] MEDS: ENOXAPARIN INJ 40 MG/0.4 ML SYR SQ SCH (07:50)
[2019-08-07] MEDS: ASCORBIC ACID 500 MG TAB PO SCH (07:50)
[2019-08-07] MEDS: FUROSEMIDE 20 MG TAB PO SCH (07:50)
[2019-08-07] MEDS: DOCUSATE SODIUM 100 MG CAP PO SCH (07:55)
--- NOTE | 2019-08-07 12:01 | XRay Report ---
XR chest 1V portable CLINICAL HISTORY: lung resection COMPARISON STUDY: Chest radiograph August 06, 2019. FINDINGS: A left chest tube is in place. Left hemithorax volume loss is unchanged. Linear left basila r opacity suggests atelectasis. Postoperative findings within the left lung are noted. There may be a tiny medial left pneumothorax. There is no evidence for pulmonary edema. Cardiomediastinal silhouett e is stable. IMPRESSION: Left chest tube in place. Possible tiny medial left pneumothorax. Electronically signed by: Jesus Sales M.D. 08/07/2019 11:59 AM
--- NOTE | 2019-08-07 12:50 | XRay Report ---
XR chest 1V portable CLINICAL HISTORY: chest tube removal dyspnea COMPARISON STUDY: 08/07/2019 11:45 AM FINDINGS: Interval removal of the left-sided chest tube. No significant pneumothorax. Unchanging inte rstitial changes left base. IMPRESSION: 1. Interval removal of the left-sided chest tube. 2. No significant postprocedural pneumothorax. The above report was generated using voice recognition software. It may contain grammatical, syntax or spelling errors. Electronically signed by: Jacky Moreno M.D. 08/07/2019 12:48 PM
--- NOTE | 2019-08-08 00:03 | Discharge Summary ---
DISCHARGE DIAGNOSES: 1. Adenocarcinoma of the left upper lobe. 2. Atrial fibrillation. 3. Anxiety. HOSPITAL COURSE: This is a very nice 69-year-old remarkably healthy male who was found to have a mass in his left upper lobe. He has excellent lung function, never smoked. After evaluating this and looking at his PET scan, I felt that a resection should be offered. On 08/02/2019, the patient underwent an uncomplicated electromagnetic navigational bronchoscopy with marking of this mass with indocyanine green dye. This showed the mass and I was able to wedge it out and indeed we were dealing with an adenocarcinoma. I then performed an uncomplicated left upper lobectomy except the patient had no fissures, so we had to complete our vascular and bronchial divisions before dividing the upper and lower lobes. The patient did quite well. We lost essentially no blood, but he did have a small air leak. We watched him overnight. On the second postoperative day, he developed atrial fibrillation. We had to move him from the floor down to a monitored bed. He quickly converted and remained in a sinus rhythm for the rest of his hospitalization. He was seen by Dr. Magdy Brooks from cardiology and it was felt that Lopressor alone would be helpful, although we did have him on amiodarone initially. The patient's air leak finally resolved. On postop day #5, we removed his chest tube. He was much better after this. He also had some issues with constipation, but responded to cathartics. Incisions were clean. His x-ray looked quite good. He was a [id number] stage IB lung carcinoma. I told him we would discuss this, but I do not think he needed to be offered any chemotherapy or radiation. We will discuss this further in the office. He was discharged home on postop day #5. I will see him back in the office next week and we will discuss our options.
--- NOTE | 2019-08-11 09:51 | Coding Query ---
CODING QUERY To promote full compliance with coding requirements relating to patient care, provider participation is requested in all cases of rehab department manager uncertainty. Please assist us with the question(s) below: Coding Question(s): Small Air Leak and Atrial Fibrillation are documented postprocedure. Please specify below, in your clinical opinion, regarding each of these to determine if they are postprocedural complications or not. SMALL AIR LEAK ( ) this is likely a Postprocedural complication ( ) this is a significant diagnosis but is Not a Postprocedural complication ( x ) this is not a significant diagnosis and Not a Postprocedural complication ATRIAL FIBRILLATION ( ) this is likely a Postprocedural complication ( x ) this is Not a Postprocedural complication Physician's Response(s): Thank you Vashti Hamilton Principal Diagnosis: "that condition established after study, to be chiefly responsible for occasioning the admission of the patient to the hospital for care." Co-Existing Principal Diagnosis: "when two or more diagnoses equally meet the criteria for principal diagnosis as determined by the circumstances of admission, diagnostic work up, and/or therapy provided, and the Alphabetic Index, Tabular List, or another coding guideline does not provide sequencing direction, any one of the diagnoses may be sequenced first." "When the physician has documented what appears to be a current diagnosis in the body of the record, but has not included the diagnosis in the final diagnostic statement, the physician should be asked whether the diagnosis should be added." (Source Coding [facility] 2 QTR90. p3-4) RENZO
== END 2019-08-07 13:50 | disposition home or self-care (01) | DRG 165 ==
LOC: ASU 06:13 → 3N 12:39 → 1E 08-04 02:45 → 2W 08-04 12:57

== ENCOUNTER 2021-03-22 04:07 | Inpatient (IN) ==
[2021-03-22] MEDS ORDERED: SODIUM CHLORIDE 0.9% 500 ML IV STA (04:30)
[2021-03-22] MEDS ORDERED: dilTIAZem HCl 5 MG/ML 5 ML VIAL IV STA (04:30)
[2021-03-22] MEDS ORDERED: dilTIAZem HCl 5 MG/ML 5 ML VIAL IV ONE (04:32)
[2021-03-22] MEDS ORDERED: STAT IV Infusion **Titration per Protocol STA (04:37)
[2021-03-22] MEDS ORDERED: SODIUM CHLORIDE 0.9% 1000ML 1,000 ML IV SCH (04:45)
[2021-03-22] MEDS ORDERED: dilTIAZem HCL 125 MG in DEXTROSE 5% 100 ML IV SCH ×2 (04:45→06:30)
[2021-03-22 04:59] LABS: Basophils # (auto) 0.05 K/uL (0-0.2); Basophils % (auto) 0.5 %; Eosinophils # (auto) 0.16 K/uL (0-0.5); Eosinophils % (auto) 1.6 %; Hematocrit (blood only) 44.3 % (42-52); Hemoglobin 15.9 g/dL (14.0-18.0); Immature Granulocytes # (auto) 0.01 K/uL (0.00-0.02); Immature Granulocytes % (auto) 0.1 %; Lymphocytes # (auto) 3.29 K/uL (1.2-3.4); Lymphocytes % (auto) 33.7 %; Mean Corpuscular Hemoglobin 30.1 pg (25-34); Mean Corpuscular Hgb Conc 35.9 g/dL (32-36); Mean Corpuscular Volume 83.9 fL (80-100); Mean Platelet Volume 12.1 fL (7.4-10.4); Monocytes # (auto) 1.13 K/uL (0.11-0.59); Monocytes % (auto) 11.6 %; Neutrophils # (auto) 5.12 K/uL (1.4-6.5); Neutrophils % (auto) 52.5 %; Platelet Count 301 K/uL (130-400); RDW Coefficient of Variation 13.4 % (11.5-14.5); RDW Standard Deviation 40.9 fL (36.4-46.3); Red Blood Count 5.28 M/uL (4.7-6.1); White Blood Count 9.76 K/uL (4.8-10.8)
[2021-03-22] MEDS ORDERED: LORazepam 0.5 MG/1 ML VIAL IV STA (05:08)
[2021-03-22 05:14] LABS: Alanine Aminotransferase 24 U/L (12-78); Albumin Level 4.1 gm/dl (3.4-5.0); Aspartate Aminotransferase 19 U/L (15-37); BUN Creatinine Ratio 13.4 (10-20); Blood Urea Nitrogen 18 mg/dl (7-18); Calcium 9.1 mg/dl (8.5-10.1); Carbon Dioxide 24 mmol/L (21-32); Chloride 109 mmol/L (98-107); Creatinine Clr Calc Pharmacy 59.6 ml/min; Est GFR (African American) 60.4; Est GFR (Non-African American) 52.1; Glucose 119 mg/dl (70-99); Magnesium 2.1 mg/dl (1.8-2.4); Sodium 141 mmol/L (136-145)
--- NOTE | 2021-03-22 05:18 | Emergency Department Note ---
History of Present Illness General Chief complaint: Shortness of Breath/Dyspnea Stated complaint: SOB, WEAKNESS Time Seen by Provider: 03/22/21 04:28 History of Present Illness This 70-year-old presents to the ER complaining of heart racing and not feeling good Location: chest Quality: racing Severity: Moderate Duration: Tonight Timing: Tonight Context: Patient was concerned and came in Modifying factors: better with nothing; worse with activity Patient had A. fib before. He is no longer on medication. Patient denies chest pain, fevers, flulike illness, abdominal pain, leg pain or swelling. He has received the Covid vaccine. Home Medications Medication Instructions Recorded Confirmed Type ascorbic acid (vitamin C) 1,000 mg 2,000 mg PO DAILY tab 07/12/19 05/06/20 History tablet,extended release calcium carbonate 500 mg (1,250 1 tab PO DAILY 07/12/19 05/06/20 History mg)-vitamin D3 125 unit tablet cholecalciferol (vitamin D3) 250 10,000 units PO DAILY 07/12/19 05/06/20 History mcg (10,000 unit) capsule turmeric root extract 500 mg 500 mg PO Q2D 07/12/19 05/06/20 History capsule vitamin B complex 1 cap PO Q2D 07/12/19 05/06/20 History tzlvdrv-oumnzhsyr-jaio tablet tab PO 05/06/20 05/06/20 History Allergies Allergy/AdvReac Type Severity Reaction Status Date / Time No Known Allergies Allergy Verified 05/06/20 14:04 Past Med/Surg History Medical History Admitted to intensive care unit Encounter for pre-operative examination Lung nodule irregular lung lesion Orthostatic hypotension Pure hypercholesterolemia Surgical History H/O arthroscopic knee surgery unsure which side H/O hand surgery at age 1. History of colonoscopy History of lobectomy of lung (08/02/19) Navigational Bronchoscopy with ICG Markings; - Singh Rich MD, FACS s Left Robotic Video-Assisted Thoracoscopy with Left Upper Lobe Wedge Resection,Left Upper Lobectomy, with Mediastinal Lymphadenectomy Dr. Rich 08-02-19 Family History Father Diabetes Mother Cancer Heart disease Social History Smoking Status: Never smoker Second Hand Exposure: Yes (as a child); Hx Alcohol Use: Yes Hx Substance Use: No Preferred Language: Turkish Communication Ability: Effective Door Person Required: No Beliefs That Will Affect Care: None marital status: Current Living Situation: Spouse current occupational status: retired Feels Safe at Home: Yes Assistive Devices: None Review of Systems A total of 10 systems reviewed and were otherwise negative Physical Exam Vital Signs Vital Signs - 24 hr 03/22/21 04:17 03/22/21 04:25 03/22/21 04:28 Temperature 35.9 C L Temperature Source Temporal Artery Scan Pulse Rate 121 H 146 H 154 H Pulse Rate from SpO2 Sensor Respiratory Rate 22 14 22 Respiratory Effort / Characteristics Non-Labored Spontaneous Respiratory Depth Normal Respiratory Pattern Regular Blood Pressure 107/63 115/79 Blood Pressure Mean 77 91 Blood Pressure Position Sitting Pulse Oximetry 100 Oxygen Delivery Method Room Air Oxygen Flow Rate Sepsis Recent Fever Within 48 Hours No Sepsis New/Unexplained Change in Mental Status No Sepsis Action Taken by Nursing No Action Required 03/22/21 04:30 03/22/21 04:37 03/22/21 04:39 Temperature Temperature Source Pulse Rate 135 H 119 H 130 H Pulse Rate from SpO2 Sensor 116 H Respiratory Rate 17 22 21 Respiratory Effort / Characteristics Respiratory Depth Respiratory Pattern Blood Pressure 96/60 L 114/74 Blood Pressure Mean 72 87 Blood Pressure Position Pulse Oximetry 100 Oxygen Delivery Method Room Air Oxygen Flow Rate 95 Sepsis Recent Fever Within 48 Hours Sepsis New/Unexplained Change in Mental Status Sepsis Action Taken by Nursing 03/22/21 04:45 03/22/21 05:00 03/22/21 05:15 Temperature Temperature Source Pulse Rate 117 H 103 H 140 H Pulse Rate from SpO2 Sensor Respiratory Rate 21 22 19 Respiratory Effort / Characteristics Respiratory Depth Respiratory Pattern Blood Pressure Blood Pressure Mean Blood Pressure Position Pulse Oximetry Oxygen Delivery Method Oxygen Flow Rate Sepsis Recent Fever Within 48 Hours Sepsis New/Unexplained Change in Mental Status Sepsis Action Taken by Nursing 03/22/21 05:30 Temperature Temperature Source Pulse Rate 120 H Pulse Rate from SpO2 Sensor Respiratory Rate 14 Respiratory Effort / Characteristics Respiratory Depth Respiratory Pattern Blood Pressure Blood Pressure Mean Blood Pressure Position Pulse Oximetry Oxygen Delivery Method Oxygen Flow Rate Sepsis Recent Fever Within 48 Hours Sepsis New/Unexplained Change in Mental Status Sepsis Action Taken by Nursing VITALS: Vitals are noted on the nurse's note and reviewed by myself. Vital signs tachycardic. GENERAL: Pleasant male pale sweaty in acute distress SKIN: Capillary reflex less than 2 seconds. HEENT: Normocephalic. PERRLA. EOMI. Nares patent. Mucous membranes moist. Neck is supple without nuchal rigidity. HEART: Tachycardic irregularly irregular LUNGS: Clear to auscultation bilaterally without wheezes, rales or rhonchi. No retractions or accessory muscle use. ABDOMEN: Positive bowel sounds x 4. Normal tympanic percussion. Soft, nontender, without masses or organomegaly. Rocha sign negative. No guarding or rebound tenderness. MUSCULOSKELETAL: No gross musculoskeletal defects. NEURO: Patient was alert and oriented to person place and time. No focal neurological deficits. Course Administered Medications Diltiazem HCl 125 mg/ Dextrose 125 mls @ 5 mls/hr IV .Q24H [facility]; Protocol Stop: 04/21/21 04:44 Last Admin: 03/22/21 05:14 Dose: 5 mg/hr, 5 mls/hr Documented by: [id number] Cosigned by: [id number] Sodium Chloride (Nss 1000ml) 1,000 mls @ 125 mls/hr IV .Q8H LASHANDA Stop: 04/21/21 04:44 Last Admin: 03/22/21 05:03 Dose: 125 mls/hr Documented by: [id number] Discontinued Medications Diltiazem HCl (Diltiazem Hcl 5 Mg/Ml 5 Ml Vial) 20 mg IV NOW STA Stop: 03/22/21 04:31 Last Admin: 03/22/21 04:42 Dose: 10 mg Documented by: [id number] Cosigned by: [id number] Diltiazem HCl (Diltiazem Hcl 5 Mg/Ml 5 Ml Vial) Confirm Administered Dose 25 mg IV .STK-MED ONE Stop: 03/22/21 04:33 Last Admin: 03/22/21 04:42 Dose: Not Given Documented by: [id number] Sodium Chloride (Nss) 500 mls @ 999 mls/hr IV .Q31M STA Stop: 03/22/21 05:00 Last Admin: 03/22/21 04:30 Dose: 999 mls/hr Documented by: [id number] Lorazepam (Ativan) 0.5 mg in 1 mls @ 1 mls/min IV NOW STA Stop: 03/22/21 05:09 Last Admin: 03/22/21 05:22 Dose: 1 mls/min Documented by: [id number] Critical Care Time Critical Care Time: Yes Total Critical Care Time: 35 I have personally spent 35 minutes of critical care time in the direct management of this patient. This includes bedside care, interpretation of diagnostic studies, and testing, discussion with consultants, patient, and family members, and other required patient management activities. This 35 minutes is in excess of all separately billable procedures. Medical Decision Making Medical Records Attestation: I reviewed the patient's medical records. Home Medications Current Medication List: was personally reviewed by me Laboratory Data Attestation: I reviewed the patient's lab results. Result diagrams: 03/22/21 04:30 03/22/21 04:30 Lab Results 03/22/21 03/22/21 03/22/21 Range/Units 04:30 04:30 04:30 WBC 9.76 (4.8-10.8) K/uL RBC 5.28 (4.7-6.1) M/uL Hgb 15.9 (14.0-18.0) g/dL Hct 44.3 (42-52) % MCV 83.9 (80-100) fL MCH 30.1 (25-34) pg MCHC 35.9 (32-36) g/dL RDW Std Deviation 40.9 (36.4-46.3) fL RDW Coeff of Trixie 13.4 (11.5-14.5) % Plt Count 301 (130-400) K/uL MPV 12.1 H (7.4-10.4) fL Immature Gran % (Auto) 0.1 % Neut % (Auto) 52.5 % Lymph % (Auto) 33.7 % [place] % (Auto) 11.6 % Eos % (Auto) 1.6 % Baso % (Auto) 0.5 % Neut # (Auto) 5.12 (1.4-6.5) K/uL Lymph # (Auto) 3.29 (1.2-3.4) K/uL [place] # (Auto) 1.13 H (0.11-0.59) K/uL Eos # (Auto) 0.16 (0-0.5) K/uL Baso # (Auto) 0.05 (0-0.2) K/uL Immature Gran # (Auto) 0.01 (0.00-0.02) K/uL PT 10.7 (9.0-12.0) Seconds INR 1.1 (0.9-1.1) APTT 25.3 (21.0-31.0) Seconds PTT Ratio 1.0 Sodium 141 (136-145) mmol/L Potassium 4.0 (3.5-5.1) mmol/L Chloride 109 H (98-107) mmol/L Carbon Dioxide 24 (21-32) mmol/L Anion Gap 8.0 (3-11) BUN 18 (7-18) mg/dl Creatinine 1.35 (0.6-1.4) mg/dl Est Cr Clr Drug Dosing 59.6 ml/min Est GFR ( Amer) 60.4 Est GFR (Non-Af Amer) 52.1 BUN/Creatinine Ratio 13.4 (10-20) Glucose 119 H (70-99) mg/dl Calcium 9.1 (8.5-10.1) mg/dl Magnesium 2.1 (1.8-2.4) mg/dl Total Bilirubin 0.6 (0.2-1) mg/dl AST 19 (15-37) U/L ALT 24 (12-78) U/L Alkaline Phosphatase 74 (45-117) U/L Troponin I < 0.015 (0-0.045) ng/ml Total Protein 7.6 (6.4-8.2) gm/dl Albumin 4.1 (3.4-5.0) gm/dl Globulin 3.5 (2.5-4.0) gm/dl Albumin/Globulin Ratio 1.2 (0.9-2) Procalcitonin (0-0.5) ng/ml TSH 2.810 (0.300-4.500) uIu/ml COVID-19 Eval Order SARS-CoV-2 (PCR) (Negative) Influenza Type A (PCR) (Neg) Influenza Type B (PCR) (Neg) RSV (RT-PCR) (Neg) 03/22/21 03/22/21 03/22/21 Range/Units 04:30 04:50 04:50 WBC (4.8-10.8) K/uL RBC (4.7-6.1) M/uL Hgb (14.0-18.0) g/dL Hct (42-52) % MCV (80-100) fL MCH (25-34) pg MCHC (32-36) g/dL RDW Std Deviation (36.4-46.3) fL RDW Coeff of Trixie (11.5-14.5) % Plt Count (130-400) K/uL MPV (7.4-10.4) fL Immature Gran % (Auto) % Neut % (Auto) % Lymph % (Auto) % [place] % (Auto) % Eos % (Auto) % Baso % (Auto) % Neut # (Auto) (1.4-6.5) K/uL Lymph # (Auto) (1.2-3.4) K/uL [place] # (Auto) (0.11-0.59) K/uL Eos # (Auto) (0-0.5) K/uL Baso # (Auto) (0-0.2) K/uL Immature Gran # (Auto) (0.00-0.02) K/uL PT (9.0-12.0) Seconds INR (0.9-1.1) APTT (21.0-31.0) Seconds PTT Ratio Sodium (136-145) mmol/L Potassium (3.5-5.1) mmol/L Chloride (98-107) mmol/L Carbon Dioxide (21-32) mmol/L Anion Gap (3-11) BUN (7-18) mg/dl Creatinine (0.6-1.4) mg/dl Est Cr Clr Drug Dosing ml/min Est GFR ( Amer) Est GFR (Non-Af Amer) BUN/Creatinine Ratio (10-20) Glucose (70-99) mg/dl Calcium (8.5-10.1) mg/dl Magnesium (1.8-2.4) mg/dl Total Bilirubin (0.2-1) mg/dl AST (15-37) U/L ALT (12-78) U/L Alkaline Phosphatase (45-117) U/L Troponin I (0-0.045) ng/ml Total Protein (6.4-8.2) gm/dl Albumin (3.4-5.0) gm/dl Globulin (2.5-4.0) gm/dl Albumin/Globulin Ratio (0.9-2) Procalcitonin < 0.05 (0-0.5) ng/ml TSH (0.300-4.500) uIu/ml COVID-19 Eval Order CovFluRsv at [facility] SARS-CoV-2 (PCR) NEGATIVE (Negative) Influenza Type A (PCR) Negative (Neg) Influenza Type B (PCR) Negative (Neg) RSV (RT-PCR) Negative (Neg) Imaging Data Attestation: I personally reviewed and interpreted this imaging study as follows: MDM Narrative Prior records/ancillary studies reviewed and summarized above. Nursing notes reviewed. Additional history obtained from family. The patient's history was concerning for racing heart. Differential diagnosis: Etiologies such as metabolic, infection, hypo/hyperglycemia, electrolyte abnormalities, cardiac sources, intracerebral event, toxicologic, neurologic, as well as others were entertained. Physical examination: As above. ER treatment provided: IV Lock An order was placed for continuous cardiac monitoring. The monitor shows a rate of 60-1 80 with a A. fib rhythm. Cardizem with drip and IV fluids On reassessment the patient felt better. Diagnostics interpretation by me: ECG: Ordered for tachycardia EKG: Irregularly irregular poor baseline, rate of 144. No acute ST-T wave changes, impression A. fib with RVR interpreted by myself The labs revealed euthyroid, negative troponin Stable H&H Imaging studies: Chest x-ray with no acute consolidation, pneumothorax or free air per my interpretation. Consultation: A consultation was placed with the hospitalist. The case was discussed and d iagnostics were reviewed. The patient was evaluated in the ER for further treatment. Exam and history seem consistent with A. fib with RVR. Patient was started on Cardizem with a drip. Heart rate improved. Medicine was consulted. He will be admitted to the medical service. Patient was reassessed multiple times. By the evaluation outlined above emergent etiologies such as infection, elec trolyte abnormalities, intracerebral event, toxologic, neurologic, abnormalities blood glucose, metabolic, as well as others were deemed relatively unlikely. The pt informed about the findings as listed above. All questions were answered and pleased with the treatment. The chart was completed utilizing [employer] Speech voice recognition software. Grammatical errors, random word insertions, pronoun errors, and incomplete sentences are an occassional consequence of this system due to software limitations, ambient noise, and hardware issues. Any formal questions or concerns about the content, text, or information contained within the body of this dictation should be directly addressed to the physician public health training assistant for clarification. Impression & Plan Atrial fibrillation with rapid ventricular response Discharge Plan Visit Data Chief Complaint: Shortness of Breath/Dyspnea Stated Complaint: SOB, WEAKNESS ED Provider: Teri Murry ED Midlevel Provider: Kathy Puri Discharge Problem: Atrial fibrillation with rapid ventricular response Patient Disposition: Admitted As Inpatient Condition: Fair Forms Stand Alone Forms: [facility] [employer] Prescriptions Prescriptions: No Action vitamin B complex [Vitamins B Complex] capsule 1 cap PO Q2D RF: 0 calcium carbonate-vitamin D3 500 mg(1,250mg) -125 unit tablet 1 tab PO DAILY RF: 0 cholecalciferol (vitamin D3) 10,000 unit capsule 10,000 units PO DAILY RF: 0 turmeric root extract 500 mg capsule 500 mg PO Q2D RF: 0 ascorbic acid (vitamin C) 1,000 mg tablet extended release 2,000 mg PO DAILY RF: 0 uxeliio-dcrzvkfei-nfvf Tablet PO RF: 0 Referrals Referrals: Bhaskar Vasquez, [Primary Care Provider] -
[2021-03-22 05:22] LABS: INR 1.1 (0.9-1.1); Partial Thromboplastin Time 25.3 Seconds (21.0-31.0); Prothrombin Time 10.7 Seconds (9.0-12.0)
[2021-03-22 05:24] LABS: Albumin Globulin Ratio 1.2 (0.9-2); Alkaline Phosphatase 74 U/L (45-117); Bilirubin,Total 0.6 mg/dl (0.2-1); Globulin 3.5 gm/dl (2.5-4.0); Total Protein 7.6 gm/dl (6.4-8.2); Troponin I < 0.015 ng/ml (0-0.045)
[2021-03-22 05:41] LABS: Influenza A virus by PCR Negative (Neg); Influenza B virus by PCR Negative (Neg); RSV by PCR Negative (Neg); SARS CoV2 RNA(COVID-19) InHosp NEGATIVE (Negative)
[2021-03-22] MEDS ORDERED: SODIUM CHLORIDE 0.9% 500 ML IV ONE (05:59)
[2021-03-22] MEDS ORDERED: LORazepam 0.25 MG/0.5 ML VIAL IV STA (06:00)
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
[2021-03-22] MEDS ORDERED: Heparin IV Adult Wt-Based Low-Dose *NO* Bolus Protocol IV SCH (06:07)
[2021-03-22] MEDS ORDERED: DIGOXIN 250 MCG in SYRINGE 9 ML IV STA (06:07)
[2021-03-22] MEDS ORDERED: HEPARIN SODIUM/DEXTROSE 25,000 UNITS/500 ML BAG IV SCH (06:14)
--- NOTE | 2021-03-22 07:38 | XRay Report ---
XR chest 1V portable CLINICAL HISTORY: Atypical chest pain. COMPARISON STUDY: Chest CT November 06, 2020. FINDINGS: Postoperative findings within the left hemithorax are unchanged. Lungs are clear. There is no pneumothorax or pleural effusion. Cardiac size is normal. Mediastinal contours are normal. There i s no evidence for pulmonary edema. IMPRESSION: No acute cardiopulmonary findings. No change in appearance of the chest. ACT 112: Negative or not required by law. Electronically signed by: Jesus Sales M.D. 03/22/2021 7:37 AM
[2021-03-22 07:45] LABS: Lyme Ab IgG w/WB Rflx Negative (Negative); Lyme Ab IgM w/WB Rflx Negative (Negative)
[2021-03-22 08:14] LABS: Estimated Average Glucose 120 mg/dl; Hemoglobin A1C 5.8 % (4.5-5.6)
--- NOTE | 2021-03-22 08:33 | Emergency Department Note ---
ED Visit Note Patient seen at bedside after discussion with the physician help desk assistant. Please refer to her note for additional detail. Patient found to be in atrial fibrillation with RVR and initially hypotensive. Patient did improve with IV fluids and rate controlling agents. Physician help desk assistant discussed the case with hospitalist for additional evaluation and management. Patient feeling improved with additional rate control. .
[2021-03-22] MEDS ORDERED: PROMETHAZINE HCL 12.5 MG in SODIUM CHLORIDE 0.9% 50 ML IV PRN (09:44)
[2021-03-22] MEDS ORDERED: LORazepam 0.5 MG/1 ML VIAL IV PRN (09:44)
[2021-03-22] MEDS ORDERED: ACETAMINOPHEN 325 MG TAB PO PRN (09:44)
[2021-03-22] MEDS ORDERED: traMADol HCL 50 MG TABLET PO PRN (09:44)
[2021-03-22 11:05] LABS: Appearance Urine Clear (Clear); Bilirubin Urine Negative (Negative); Blood Urine Negative (Negative); Color Urine Yellow; Glucose Urine UA Negative (Negative); Ketones Urine 1+ (Negative); Leukocyte Esterase Urine Negative (Negative); Nitrite Urine Negative (Negative); Protein Urine Negative (Negative); Specific Gravity Urine 1.015 (1.000-1.030); Urobilinogen Urine Negative (Negative)
--- NOTE | 2021-03-22 13:24 | Cardiology Consultation ---
Date of Consultation March 22, 2021 Assessment & Plan (1) Atrial fibrillation with rapid ventricular response: (2) History of lobectomy of lung: (3) Primary adenocarcinoma of upper lobe of left lung: (4) Asthmatic bronchitis: (5) JESSICA (generalized anxiety disorder): The pathophysiology treatment options for atrial fibrillation were discussed with great lengths both with the patient and his by phone. Given the fact that he is currently spontaneously converted normal sinus rhythm consideration can be given to initiation of antiarrhythmic therapy to possibly prevent further episodes. The pros and cons of rate versus rhythm control strategy were discussed at great lengths. Currently the patient is not sure which avenue he would like to pursue. I would like to monitor him on telemetry overnight to evaluate for any possible asymptomatic episodes of atrial fibrillation that he is unaware of. I will initiate Eliquis this evening and his heparin can be stopped per protocol. I will follow up with the patient to determine preferred course of treatment. History of Present Illness Reason for Consultation: Atrial fibrillation with rapid ventricular response Requesting Physician: Dr. Arndt Attending Physician: Margarita Arndt, DO History of Present Illness It was my pleasure to see Mr. Huynh in cardiac consultation today March 22, 2021. He is a very pleasant 70-year-old gentleman who presented to [facility] emergency department on 03/22/2021 with complaints of fatigue and dizziness. He states he has been very active lately working on his new car and yesterday after working for approximately 5 hours he felt particularly tired. He got cleaned up and sat down but was unable to rest. He felt very uneasy with a sensation of his heart skipping beats in his chest. He tried to go to bed but starts feeling dizzy and had his bring him in the emergency department. Upon arrival he was found to be in atrial fibrillation with rapid ventricular response and started on Cardizem and heparin drips. He spontaneously converted to normal sinus rhythm in the emergency department and was admitted to telemetry. Currently states he is feeling well at rest. Allergies Allergy/AdvReac Type Severity Reaction Status Date / Time Beta-Blockers AdvReac Intermediate tired Verified 03/22/21 07:26 (Beta-Adrenergic Bloc Home Medications Medication Instructions Recorded Confirmed Type ascorbic acid (vitamin C) 1,000 mg 2,000 mg PO QAM tab 07/12/19 03/22/21 History tablet,extended release cholecalciferol (vitamin D3) 250 10,000 units PO QAM 07/12/19 03/22/21 History mcg (10,000 unit) capsule turmeric root extract 500 mg 500 mg PO QAM 07/12/19 03/22/21 History capsule vitamin B complex 1 cap PO DIRECTED PRN 07/12/19 03/22/21 History oimwqer-ofuiqivxn-dgrs tablet 1 tab PO Q OTHER DAY 05/06/20 03/22/21 History garlic 500 mg PO DIRECTED PRN 03/22/21 03/22/21 History naproxen-diphenhydramine [Aleve PM] 1 tab PO PM PRN 03/22/21 03/22/21 History Patient History Medical History Admitted to intensive care unit Encounter for pre-operative examination Lung nodule irregular lung lesion Orthostatic hypotension Pure hypercholesterolemia Surgical History H/O arthroscopic knee surgery unsure which side H/O hand surgery at age 1. History of colonoscopy History of lobectomy of lung (08/02/19) Navigational Bronchoscopy with ICG Markings; - Singh Rich MD, FACS s Left Robotic Video-Assisted Thoracoscopy with Left Upper Lobe Wedge Resection,Left Upper Lobectomy, with Mediastinal Lymphadenectomy Dr. Rich 08-02-19 Family History Father Diabetes Mother Cancer Heart disease Social History Smoking Status: Never smoker Second Hand Exposure: Yes (as a child); Hx Alcohol Use: Yes Hx Substance Use: No Preferred Language: German Communication Ability: Effective Ict Sales Assistant Required: No Beliefs That Will Affect Care: None marital status: Current Living Situation: Spouse current occupational status: retired Other Information That Helps Us Care for You: No Feels Safe at Home: Yes Safety Concerns: Feels Safe At This Time Assistive Devices: None Assistive Devices Comment: reading glasses Review of Systems Review of Systems: All systems reviewed & are unremarkable except as noted in HPI & below Physical Exam Physical Exam: Physical Exam: General: Awake, alert and oriented x 3. No acute distress. HEENT: Normocephalic, atraumatic. Pupils equal, round and reactive to light and accommodation. Extraocular muscles are intact. Anicteric sclera. Moist mucous membranes. Neck: No JVD. No bruit. Cardiovascular: Regular. No S-4. Normal S-1 and S-2. No S-3. No murmurs, rubs or gallops. Pulmonary: Clear to auscultation bilaterally. No rales, rhonchi, or wheezing. Abdomen: Bowel sounds x 4, soft. No rebound, guarding or tenderness. No organomegaly. Extremities: No clubbing, cyanosis or edema. +2 pedal pulses bilaterally. Skin: Warm and dry. Results & Data ([facility]) Vital Signs (Past 12 Hours) Vital Signs Temp Pulse Pulse Pulse Resp BP BP 03/22/21 11:58 36.6 C 59 L 18 109/65 03/22/21 11:04 55 L 03/22/21 10:07 116/72 03/22/21 09:44 36.6 C 55 L 18 135/74 03/22/21 09:20 36.8 C 56 L 18 03/22/21 08:30 116/72 03/22/21 08:15 83 18 119/78 03/22/21 08:01 79 16 03/22/21 08:00 71 18 124/74 03/22/21 07:45 84 14 115/69 03/22/21 07:30 103 H 16 121/64 03/22/21 07:15 86 14 112/73 03/22/21 07:00 73 15 109/61 03/22/21 05:45 105 H 15 106/82 03/22/21 05:37 119 H 19 134/84 03/22/21 05:30 120 H 14 03/22/21 05:15 140 H 19 03/22/21 05:00 103 H 22 03/22/21 04:45 117 H 21 03/22/21 04:39 130 H 21 114/74 03/22/21 04:37 119 H 22 96/60 L 03/22/21 04:30 135 H 17 03/22/21 04:28 154 H 22 115/79 03/22/21 04:25 146 H 14 03/22/21 04:17 35.9 C L 121 H 22 107/63 BP Pulse Ox Pulse Ox 03/22/21 11:58 98 03/22/21 11:04 03/22/21 10:07 03/22/21 09:44 96 96 03/22/21 09:20 135/74 98 03/22/21 08:30 03/22/21 08:15 03/22/21 08:01 03/22/21 08:00 03/22/21 07:45 03/22/21 07:30 03/22/21 07:15 03/22/21 07:00 03/22/21 05:45 03/22/21 05:37 03/22/21 05:30 03/22/21 05:15 03/22/21 05:00 03/22/21 04:45 03/22/21 04:39 100 03/22/21 04:37 03/22/21 04:30 03/22/21 04:28 03/22/21 04:25 03/22/21 04:17 100
--- NOTE | 2021-03-22 14:01 | Hospitalist Progress Note ---
Date of Service March 22, 2021 Assessment & Plan (1) Atrial fibrillation with rapid ventricular response: Converted overnight into sinus rhythm after Cardizem drip. 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 Continue monitoring on telemetry overnight. Echocardiogram reveals grade 2 diastolic dysfunction, normal left ventricular systolic function with an EF 60 to 65% and no significant valvular pathology. Will start trial of Eliquis tonight. (2) Post-thoracotomy pain: Chronic, follow-up with outpatient PCP regarding options for therapy. (3) Beta-corry intolerance: Resting heart rate is around 60 bpm. Has history of beta-corry intolerance in the past. (4) DVT prophylaxis: Heparin drip Full code Dispo-to home in a.m. Admission and Anticipated Discharge Date Admission Date: March 22, 2021 Subjective 70-year-old man admitted for atrial fibrillation with RVR Converted to sinus rhythm overnight on diltiazem drip Denies symptoms after conversion including no chest pain, shortness of breath or other issues Reports a postoperative episode of atrial fibrillation status post lobectomy a year and a half ago. Reports exerting himself for 5 to 6 hours working on a car over the last 3 days before symptoms began. [place] abnormally tired doing this. Review of Systems Review of Systems: All systems reviewed & are unremarkable except as noted in Subjective Physical Exam Physical Exam: CONSTITUTIONAL: WNWD, vitals as above, generally well- appearing EYES: normal conjunctivae, no scleral icterus ENT: external ear and nose normal,MMM RESPIRATORY: clear to auscultation bilaterally, no crackles, rales or wheezes, normal respiratory effort CARDIOVASCULAR: regular rate and rhythm, S1 and 2 heard without murmurs, gallops or rubs, no JVD, no peripheral edema CHEST: inspection of chest was normal MUSCULOSKELETAL: strength 5/5 throughout, head is normocephalic and atraumatic SKIN: warm and dry NEUROLOGIC: CN 2-12 grossly intact, no sensory deficit, normal cognition, normal speech, no tremor, no gross focal deficits. PSYCHIATRIC: alert cooperative and oriented to person, place and time. Results & Data Results & Data ([facility]) Vital Signs (Past 12 Hours) Vital Signs Temp Pulse Pulse Pulse Resp BP BP 03/22/21 11:58 36.6 C 59 L 18 109/65 03/22/21 11:04 55 L 03/22/21 10:07 116/72 03/22/21 09:44 36.6 C 55 L 18 135/74 03/22/21 09:20 36.8 C 56 L 18 03/22/21 08:30 116/72 03/22/21 08:15 83 18 119/78 03/22/21 08:01 79 16 03/22/21 08:00 71 18 124/74 03/22/21 07:45 84 14 115/69 03/22/21 07:30 103 H 16 121/64 03/22/21 07:15 86 14 112/73 03/22/21 07:00 73 15 109/61 03/22/21 05:45 105 H 15 106/82 03/22/21 05:37 119 H 19 134/84 03/22/21 05:30 120 H 14 03/22/21 05:15 140 H 19 03/22/21 05:00 103 H 22 03/22/21 04:45 117 H 21 03/22/21 04:39 130 H 21 114/74 03/22/21 04:37 119 H 22 96/60 L 03/22/21 04:30 135 H 17 03/22/21 04:28 154 H 22 115/79 03/22/21 04:25 146 H 14 03/22/21 04:17 35.9 C L 121 H 22 107/63 BP Pulse Ox Pulse Ox 03/22/21 11:58 98 03/22/21 11:04 03/22/21 10:07 03/22/21 09:44 96 96 03/22/21 09:20 135/74 98 03/22/21 08:30 03/22/21 08:15 03/22/21 08:01 03/22/21 08:00 03/22/21 07:45 03/22/21 07:30 03/22/21 07:15 03/22/21 07:00 03/22/21 05:45 03/22/21 05:37 03/22/21 05:30 03/22/21 05:15 03/22/21 05:00 03/22/21 04:45 03/22/21 04:39 100 03/22/21 04:37 03/22/21 04:30 03/22/21 04:28 03/22/21 04:25 03/22/21 04:17 100 Laboratory Results Short CBC 03/22/21 Range/Units 04:30 WBC 9.76 (4.8-10.8) K/uL Hgb 15.9 (14.0-18.0) g/dL Hct 44.3 (42-52) % Plt Count 301 (130-400) K/uL BMP 03/22/21 04:30 Sodium 141 Potassium 4.0 Chloride 109 H Carbon Dioxide 24 BUN 18 Creatinine 1.35 Glucose 119 H Calcium 9.1 Cardiac Enzymes 03/22/21 Range/Units 04:30 Troponin I < 0.015 (0-0.045) ng/ml Liver Function 03/22/21 Range/Units 04:30 Total Bilirubin 0.6 (0.2-1) mg/dl AST 19 (15-37) U/L ALT 24 (12-78) U/L Alkaline Phosphatase 74 (45-117) U/L Albumin 4.1 (3.4-5.0) gm/dl Urine 03/22/21 Range/Units 10:54 Urine Color Yellow Urine Appearance Clear (Clear) Urine pH 7.0 (4.5-7.5) Ur Specific [place] 1.015 (1.000-1.030) Urine Protein Negative (Negative) Urine Glucose (UA) Negative (Negative) Medications Administered Current Inpatient Medications Acetaminophen (Acetaminophen 325 Mg Tab) 650 mg PO Q4H PRN PRN Reason: Pain or Fever Stop: 04/21/21 09:43 Heparin Sodium/Dextrose (Heparin Sodium/Dextrose) 25,000 units in 500 mls @ 20 mls/hr IV .Q24H [facility]; Protocol Stop: 04/21/21 06:13 Last Admin: 03/22/21 08:10 Dose: 1,000 units/hr, 20 mls/hr Documented by: Diltiazem HCl 125 mg/ Dextrose 125 mls @ 0 mls/hr IV .Q0M [facility]; Protocol Stop: 04/21/21 06:29 Promethazine HCl 12.5 mg/ (Sodium Chloride) 50.5 mls @ 202 mls/hr IV Q6H PRN PRN Reason: Nausea And Vomiting Stop: 04/21/21 09:43 Lorazepam (Ativan) 0.5 mg in 1 mls @ 1 mls/min IV Q4H PRN PRN Reason: Anxiety/Agitation Stop: 04/21/21 09:43 Tramadol HCl (Tramadol Hcl 50 Mg Tablet) 25 - 50 mg PO Q4H PRN PRN Reason: Pain Stop: 04/21/21 09:43
[2021-03-22 14:36] LABS: Partial Thromboplastin Ratio 1.2; Partial Thromboplastin Time 32.4 Seconds (21.0-31.0)
[2021-03-22] MEDS ORDERED: HEPARIN SOD (PORCINE) 1000 UNIT/ML IV ONE (16:00)
[2021-03-22] MEDS: APIXABAN 5 MG TABLET PO SCH (18:37)
[2021-03-22] MEDS ORDERED: dilTIAZem HCl 60 MG TAB PO SCH (21:00)
[2021-03-22 22:01] LABS: Partial Thromboplastin Ratio 1.9
[2021-03-22 22:06] LABS: Partial Thromboplastin Time 48.9 Seconds (21.0-31.0)
[2021-03-23 05:26] LABS: Basophils # (auto) 0.04 K/uL (0-0.2); Basophils % (auto) 0.6 %; Eosinophils # (auto) 0.21 K/uL (0-0.5); Eosinophils % (auto) 3.2 %; Hematocrit (blood only) 36.3 % (42-52); Hemoglobin 12.8 g/dL (14.0-18.0); Lymphocytes # (auto) 2.94 K/uL (1.2-3.4); Lymphocytes % (auto) 45.4 %; Mean Corpuscular Hemoglobin 30.4 pg (25-34); Mean Corpuscular Hgb Conc 35.3 g/dL (32-36); Mean Corpuscular Volume 86.2 fL (80-100); Mean Platelet Volume 11.7 fL (7.4-10.4); Monocytes # (auto) 0.62 K/uL (0.11-0.59); Monocytes % (auto) 9.6 %; Neutrophils # (auto) 2.67 K/uL (1.4-6.5); Neutrophils % (auto) 41.2 %; Platelet Count 203 K/uL (130-400); RDW Coefficient of Variation 13.8 % (11.5-14.5); RDW Standard Deviation 43.7 fL (36.4-46.3); Red Blood Count 4.21 M/uL (4.7-6.1); White Blood Count 6.48 K/uL (4.8-10.8)
[2021-03-23 05:42] LABS: Partial Thromboplastin Ratio 1.2; Partial Thromboplastin Time 31.6 Seconds (21.0-31.0)
[2021-03-23 05:50] LABS: BUN Creatinine Ratio 17.7 (10-20); Calcium 8.3 mg/dl (8.5-10.1); Potassium 4.5 mmol/L (3.5-5.1)
--- NOTE | 2021-03-23 07:29 | Electrocardiogram Report ---
Test Reason : Blood Pressure : / mmHG Vent. Rate : 144 BPM Atrial Rate : 107 BPM P-R Int : 144 ms QRS Dur : 078 ms QT Int : 312 ms P-R-T Axes : 000 044 016 degrees QTc Int : 483 ms Poor data quality, interpretation may be adversely affected Atrial fibrillation with rapid ventricular response Nonspecific ST abnormality Abnormal ECG When compared with ECG of 04-AUG-2019 10:28, No significant change Confirmed by Henrry Peoples ([id number]) on 03/23/2021 7:29:26 AM Referred By: REFERRED SELF Confirmed By:Henrry Peoples
[2021-03-23] MEDS: APIXABAN 5 MG TABLET PO SCH (08:48)
--- NOTE | 2021-03-23 10:37 | CT Scan Report ---
CT OF THE HEAD WITHOUT CONTRAST CLINICAL HISTORY: r/o CVA, bleed COMPARISON STUDY: No previous studies for comparison. CT DOSE: 614.27 mGy.cm TECHNIQUE: Helical axial images of the head were obtained without IV contrast. Automated exposure con trol was utilized for the study. A dose lowering technique was utilized adhering to the principles o f ALARA. FINDINGS: No acute intracranial hemorrhage, midline shift or mass effect is present. The ventricular system is unremarkable. The basal cisterns are patent. No extra-axial collections are present. There are no findings to suggest acute dural sinus thrombosis or acute territorial infarct. No significant calvarial abnormalities are present. Visualized portions of the sinuses and mastoid air cells are rober ar. IMPRESSION: No acute intracranial findings. ACT 112: Negative or not required by law. Electronically signed by: Jesus Sales M.D. 03/23/2021 10:36 AM
--- NOTE | 2021-03-23 12:32 | Cardiology Progress Note ---
Date of Service March 23, 2021 Assessment & Plan (1) Atrial fibrillation with rapid ventricular response: (2) History of lobectomy of lung: (3) Primary adenocarcinoma of upper lobe of left lung: (4) Asthmatic bronchitis: (5) JESSICA (generalized anxiety disorder): No recurrences of atrial fibrillation overnight. Unfortunately, patient remains rather bradycardic at baseline I do not believe he would be a candidate for any further AV farideh blocking agents or antiarrhythmic at this point. Obviously the concern is for tachybradycardia syndrome going forward. This was once again reviewed with the patient and he states he understands. Okay to DC to home on Eliquis 5 mg twice daily. My office will call to arrange follow-up with me in 2 to 4 weeks. Admission and Anticipated Discharge Date Admission Date: March 22, 2021 Subjective Patient seen and examined, chart reviewed. States he is feeling well today. Denies any recurrences of palpitations, shortness of breath or dizziness. Telemetry reviewed: Normal sinus rhythm/sinus bradycardia in the 50s without recurrences of atrial fibrillation overnight. Review of Systems Review of Systems: All systems reviewed & are unremarkable except as noted in HPI & below Physical Exam Physical Exam: Physical Exam: General: Awake, alert and oriented x 3. No acute distress. HEENT: Normocephalic, atraumatic. Pupils equal, round and reactive to light and accommodation. Extraocular muscles are intact. Anicteric sclera. Moist mucous membranes. Neck: No JVD. No bruit. Cardiovascular: Regular. No S-4. Normal S-1 and S-2. No S-3. No murmurs, rubs or gallops. Pulmonary: Clear to auscultation bilaterally. No rales, rhonchi, or wheezing. Abdomen: Bowel sounds x 4, soft. No rebound, guarding or tenderness. No organomegaly. Extremities: No clubbing, cyanosis or edema. +2 pedal pulses bilaterally. Skin: Warm and dry. Results & Data ([facility]) Vital Signs (Past 12 Hours) Vital Signs Temp Pulse Pulse Resp BP BP BP 03/23/21 11:54 36.6 C 03/23/21 11:38 68 21 158/85 H 03/23/21 09:53 61 18 137/82 03/23/21 08:00 76 03/23/21 07:50 48 L 03/23/21 07:30 36.5 C 03/23/21 07:13 73 16 154/81 H 03/23/21 04:47 36.6 C 58 L 14 136/79 03/23/21 01:03 36.6 C 64 12 138/85 Pulse Ox 03/23/21 11:54 03/23/21 11:38 97 03/23/21 09:53 03/23/21 08:00 03/23/21 07:50 03/23/21 07:30 03/23/21 07:13 97 03/23/21 04:47 97 03/23/21 01:03 97
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
== END 2021-03-23 15:38 | disposition home or self-care (01) | DRG 310 ==
LOC: ED 04:07 → 1E 06:14